=== PATIENT | male | born 1935 | race Caucasian/White ===

== ENCOUNTER 2024-02-08 19:32 | Emergency (ER) | payer MEDICARE, BC, SELFPAY ==
[2024-02-08] VITALS (10 sets, daily range): BP systolic 104–135; BP diastolic 57–74; PULSE 88–117; BMI 29.9
--- NOTE | 2024-02-08 20:06 | ED.GENMED ---
History of Present Illness
General
Chief Complaint: Fainting/Passed Out
Source: patient
Exam Limitations: none
Time Seen by Provider: 02/08/24 19:55
History of Present Illness
History of Present Illness:
This is a 88 year old male that comes in by ambulance with c/o syncope. States that he was sitting at the bar. states that he was going to get up and his eyes rolled back into his head and he got pale. State that they caught him before he fell.
State that he was not feeling good today. State that he has 2 sips of a beer and 2 sips of a [place] ice tea. States that his back was sore today so he took Ibuprofen 800mg as he is in pain 12/12. States that he had some nausea and a headache
earlier but this is gone. Denies any fever, chills, chest pain, SOB, abd pain, vomiting, diarrhea, dizziness, urinary burning.
Past History
Past History
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
Social History
Tobacco: Former smoker
Alcohol: Occasional
Drug: None
Personal:
Living: with family
Review of Systems
Review of Systems
All Other Systems: ROS reviewed and negative except as documented in HPI and ROS
Constitutional: Reports no symptoms; Denies fever or chills
EENT: Reports no symptoms
Respiratory: Reports no symptoms; Denies cough or trouble breathing
Cardiac: Reports no symptoms; Denies chest pain
ABD/GI: Reports nausea; Denies abdominal pain, vomiting or diarrhea
: Reports no symptoms; Denies dysuria, frequency or urgency
Musculoskeletal: Reports no symptoms
Skin: Reports no symptoms
Neurological: Reports headache (Slight); Denies dizzy
Psychiatric: Reports no symptoms
Phy Exam
General Physical Exam
General Presentation: well appearing and no apparent distress
General age: appears stated age
General Skin: warm and dry
General Habitus: elderly
General Mental: alert
General Hydration: appears well hydrated
ENT Exam
ENT Exam: TM's normal, pharynx normal and neck supple
Eye Exam
Eye Exam: EOMI
Cardiovascular Exam
Cardiovascular Exam: regular rate/rhythm, no edema, normal peripheral pulses and other (Murmur)
Pulmonary Exam
Pulmonary Exam: lungs clear, no respiratory distress, no rales, chest non tender, no crackles, no rhonchi, no wheezing and no cough
Gastrointestinal Exam
Gastrointestinal Exam: normal bowel sounds, non tender, soft, no organomegaly, no pulsatile mass and non distended
Musculoskeletal Exam
Musculoskeletal Exam: full ROM and no edema
Skin Exam
Skin Exam: normal color, warm/dry, no rash and no petechia
Psychiatric Exam
Psychiatric Exam: normal mood/affect
Course
Orders/Labs/Results
Orders:
Orders
02/08/24 19:34
EKG [Electrocardiogram (*1)] Urgent
Reason for Study: Syncope
02/08/24 19:35
EKG- Treatment ONCE
02/08/24 19:58
Complete Blood Count/With Diff Urgent
Comprehensive Metabolic Panel Urgent
Troponin I Urgent
02/08/24 20:04
Orthostatic VS- Treatment ONCE
0.9% Sodium Chloride 500 ml [Nss] 500 ml IV BOLUS
02/08/24 20:05
CR Chest - 2 Views Urgent
Comment:
Reason For Exam: Syncope
Abnormal Lab Results
02/08/24
19:58
WBC 11.6 H 10^3/uL
(4.8-10.8)
RBC 3.35 L 10^6/uL
(4.70-6.10)
Hgb 11.0 L g/dL
(13.0-18.0)
Hct 31.9 L %
(39.0-52.0)
MCV 95.2 H fL
(80.0-94.0)
MCH 32.8 H pg
(27.0-31.0)
Absolute Neuts (auto) 9.9 H 10^3/uL
(1.4-6.5)
Absolute Lymphs (auto) 1.0 L 10^3/uL
(1.2-3.4)
Neutrophils % 85.7 H %
(42.2-75.2)
Lymphocytes % 8.9 L %
(20.5-51.1)
Carbon Dioxide 16 L mmol/L
(22-30)
Glucose 181 H mg/dl
(70-99)
Calcium 8.3 L mg/dl
(8.4-10.2)
Total Protein 5.8 L g/dl
(6.3-8.2)
02/08/24 19:58
02/08/24 19:58
WBC very slightly elevated. H/H slightly low. Anemic, carbon dioxide low. Hyperglycemia, Total protein low. Troponin <0.012, Anion Gap 17
Vital Signs
Initial and Last Documented VS:
Initial Vital Signs
Temp Pulse Resp BP Pulse Ox
97.9 F 68 20 104/58 98
02/08/24 19:36 02/08/24 19:36 02/08/24 19:36 02/08/24 19:36 02/08/24 19:36
Last Documented Vital Signs
Temp Pulse Resp BP Pulse Ox
97.9 F 76 15 115/57 99
02/08/24 19:36 02/08/24 20:15 02/08/24 20:15 02/08/24 20:00 02/08/24 20:15
Microsoft Office Instructor consulted with Physician
Microsoft Office Instructor consulted with physician?: Yes
Name of Physician Consulted: Kilo Mulligan
MDM/Problems Addressed
Differential Diagnosis Includes:
Syncope, Dehydration.
Chronic conditions affecting care:
This is a 88 year old male that comes in by ambulance with c/o syncope. States that he did not feel great all day. State that he was sitting at the bar and he went to stand up and his states that his eyes went back into his head and they caught
him before he fell. States that he was unresponsive.
Will check labs, give IV fluids, Orthostatics.
Back into see patient. Patient states that he is ready to go home. Reviewed patient labs and Troponin. Explained to patient that he needs to get better control of his blood sugar. Patient to increase his water intake to 8-8oz glasses daily. Patient
to follow up with the family doctor and will suggest a bridal sales consultant for further evaluation. Patient to return with any concerns.
Chronic conditions affecting care: DM
Acute Exacerbation and/or Progression of Chronic Illness:
NA
*Radiology
Radiology exam reviewed: radiology read reviewed (Chest- No active cardiopulmonary disease. )
*Pulse Oximetry
Patient hypoxic: no
*EKG
Interpreted by ED Provider?: Yes
Heart Rate: 70
Rate: normal
Rhythm: sinus
Powell: left axis deviation
Interval: first degree heart block
QRS Pattern: left bundle branch block (Incomplete)
Ischemia: no ischemia
*Wood Shop Teacher Interpretation
Rate: normal
Heart Rate: 77
Rhythm: sinus
*Critical Care Note
Total Time (30-74mins, 75-104mins- exclusive of procedures): Not Applicable
ED Attending Note
-
Portions of this chart may have been created with voice recognition software.� Occasional wrong word or��sound alike� substitutions may have occurred due to the inherent limitations of voice recognition software.
Discharge Plan
Departure
Patient Disposition: Home (Routine Discharge)
Date of Disposition: 02/08/24
Time of Disposition: 22:14
Patient with high blood pressure during this ER visit?: No
Condition: Good
Covid-19: Not Applicable
Discharge Problem:
Syncope
Instructions: Syncope (Fainting) (DC)
Prescriptions:
No Action
metformin 500 mg tablet
750 mg PO BID
doxycycline hyclate 100 mg capsule
100 mg PO BID
Theragen Tablet
1 tab PO DAILY
diclofenac sodium 75 mg tablet,delayed release (DR/EC)
75 mg PO BID
zolpidem 10 mg tablet
10 mg PO HSPRN PRN (Reason: sleep)
Patient Comments:
02/08/2024: last filled 08/21/23, 30 tabs for 30 days from [facility]
dutasteride 0.5 mg capsule
0.5 mg PO NOON
alfuzosin 10 mg tablet extended release 24 hr
10 mg PO NOON
amlodipine-valsartan 5-160 mg tablet
1 tab PO NOON
Referrals:
Beka Maier MD [Active] - Follow up in 2-3 days
Eamon Lan MD [Family Provider] - Follow up in 2-3 days
Activity Restrictions/Additional Instructions:
As discussed, your blood work shows you have a little anemia. Your blood sugar is also elevated. Please watch your diet to help decrease your sugar intake. Your Chest x-ray was normal. Please follow up with the family doctor and the [facility] for
further evaluation. Please increase your water intake to 8-8oz glasses daily. IF YOU HAVE ANY CHEST PAIN, DIZZINESS, OR YOU HAVE ANY OTHER CONCERNS PLEASE RETURN TO THE EMERGENCY ROOM.
Interventions
Interventions:
*Risk Screen - Suicide Last Done: 02/08/24 19:36
*General Assessment Last Done: 02/08/24 19:36
*Neglect/Abuse Screening Last Done: 02/08/24 19:36
ED- Fall Risk Assessment Last Done: 02/08/24 19:48
*ED COVID-19 Vaccine History Last Done: 02/08/24 19:36
ED- Cardiac Assessment Last Done: 02/08/24 19:48
ED- Neurological Assessment Last Done: 02/08/24 19:48
Discharge Date and Time
Print Language: FRISIAN
[2024-02-08 20:07] LABS: % Basophils 0.3 % (0-2); % Eosinophils 0.1 % (0-6); % Immature Granulocytes 0.3 % (0-0.5); % Lymphocytes 8.9 % (20.5-51.1); % Monocytes 4.7 % (1.7-9.3); % Neutrophils 85.7 % (42.2-75.2); Absolute Monocytes 0.5 10^3/uL (0.1-0.6); Absolute Neutrophils 9.9 10^3/uL (1.4-6.5); Hematocrit 31.9 % (39.0-52.0); Mean Corp Hgb Conc. 34.5 g/dL (33.0-37.0); Mean Corpuscular Hgb 32.8 pg (27.0-31.0); Mean Corpuscular Volume 95.2 fL (80.0-94.0); Mean Platelet Volume 8.8 fL (7.4-10.4); Nucleated Red Blood Cells % 0 % (-); Platelet Count 248 10^3/uL (130-400); Red Blood Cell Count 3.35 10^6/uL (4.70-6.10); Red Cell Dist. Width 13.9 % (11.5-14.5); White Blood Cell Count 11.6 10^3/uL (4.8-10.8)
[2024-02-08] MEDS: NSS 500 IV (20:11)
[2024-02-08 20:34] LABS: ALT (SGPT) 15 U/L (0-50); AST (SGOT) 25 U/L (17-59); Albumin 3.6 g/dl (3.5-5.0); Alkaline Phosphatase 60 U/L (38-126); Blood Urea Nitrogen 19 mg/dl (9-20); Calcium 8.3 mg/dl (8.4-10.2); Carbon Dioxide 16 mmol/L (22-30); Chloride 102 mmol/L (98-107); Estimated Creatinine Clearance 73 ml/min; Glucose 181 mg/dl (70-99); Potassium 4.4 mmol/L (3.5-5.1); Sodium 135 mmol/L (135-145); Total Bilirubin 0.5 mg/dl (0.2-1.3); Total Protein 5.8 g/dl (6.3-8.2); eGFR > 60.00
[2024-02-08 20:38] LABS: Troponin I < 0.012 ng/ml
== END 2024-02-08 23:00 | disposition home or self-care (01) ==
LOC: EMR 19:32
PROVIDERS: EMERGENCY PHYSICIAN Emergency Medicine; FAMILY PHYSICIAN Internal Medicine
DX: R55 Syncope and collapse (principal); I10 Essential (primary) hypertension; E11.65 Type 2 diabetes mellitus with hyperglycemia; Z87.891 Personal history of nicotine dependence; D64.9 Anemia, unspecified
CPT/HCPCS: 96360; 99284; 71046; 80053; 84484; 85025; 93005

== ENCOUNTER → 2024-02-26 08:03 | Outpatient (REF) | payer MEDICARE, BC, SELFPAY | LOC: HWRCS 08:03 | PROVIDERS: ATTENDING PHYSICIAN Internal Medicine | DX: R55 Syncope and collapse (principal); R68.89 Other general symptoms and signs | CPT/HCPCS: 93306 ==

== ENCOUNTER → 2024-03-06 09:11 | Outpatient (REF) | payer MEDICARE, BC, SELFPAY | LOC: RCS 09:11 | PROVIDERS: ATTENDING PHYSICIAN Internal Medicine | DX: R55 Syncope and collapse (principal) | CPT/HCPCS: 93225; 93226 ==

== ENCOUNTER 2024-05-22 05:30 | Inpatient (IN) | payer MEDICARE, BC, SELFPAY ==
[2024-05-21 21:12] VITALS: BP 123/57
[2024-05-21 21:17] VITALS: BMI 29.9
--- NOTE | 2024-05-21 21:18 | EDRN ---
Pt says he cannot stand on his L leg which occurred after having a laminectomy and angioplasty on May 09. Pt says he went to get up to urinate and he passed out and slid off the bed which prompted this visit. Pt has pain in his back and L
leg now. No numbness/tingling. Pt walked up and down his driveway three times today. Pt took oxycodone at 1400. Pt denies fever/chills/cough, n/v/d/c, cp, sob, abd pain.
[2024-05-21 21:30] VITALS: BP 124/59
[2024-05-21 21:35] LABS: ALT (SGPT) 16 U/L (0-50); AST (SGOT) 18 U/L (17-59); Albumin 3.7 g/dl (3.5-5.0); Alkaline Phosphatase 70 U/L (38-126); Blood Urea Nitrogen 21 mg/dl (9-20); Calcium 8.6 mg/dl (8.4-10.2); Carbon Dioxide 22 mmol/L (22-30); Chloride 92 mmol/L (98-107); Estimated Creatinine Clearance 73 ml/min; Glucose 207 mg/dl (70-99); Sodium 122 mmol/L (135-145); Total Bilirubin 0.7 mg/dl (0.2-1.3); Total Protein 5.9 g/dl (6.3-8.2); eGFR > 60.00
[2024-05-21 21:41] LABS: Hematocrit 32.5 % (39.0-52.0); Hemoglobin 11.5 g/dL (13.0-18.0); Mean Corp Hgb Conc. 35.4 g/dL (33.0-37.0); Mean Corpuscular Volume 93.4 fL (80.0-94.0); Mean Platelet Volume 9.1 fL (7.4-10.4); Platelet Count 293 10^3/uL (130-400); Red Blood Cell Count 3.48 10^6/uL (4.70-6.10); Red Cell Dist. Width 14.2 % (11.5-14.5); White Blood Cell Count 35.9 10^3/uL (4.8-10.8)
[2024-05-21 21:55] LABS: % Basophils 0.2 % (0-2); % Eosinophils 0.1 % (0-6); % Immature Granulocytes 1.1 % (0-0.5); % Lymphocytes 15.7 % (20.5-51.1); % Neutrophils 78.9 % (42.2-75.2); Absolute Basophils 0.1 10^3/uL (0-0.2); Absolute Immature Granulocytes 0.4 10^3/uL (0-0.05); Absolute Lymphocytes 5.6 10^3/uL (1.2-3.4); Absolute Monocytes 1.4 10^3/uL (0.1-0.6); Absolute Neutrophils 28.4 10^3/uL (1.4-6.5); Nucleated Red Blood Cells % 0.1 % (-)
[2024-05-21] MEDS: TYLENOL 1000 MG PO (22:02)
[2024-05-21] MEDS: NSS 1000 IV (22:02)
[2024-05-21 22:04] VITALS: BP 100/53
[2024-05-21 22:09] LABS: Lactic Acid 1.8 mmol/L (0.7-2.0)
--- NOTE | 2024-05-21 22:10 | ED.GENMED ---
History of Present Illness
General
Chief Complaint: Fainting/Passed Out
Time Seen by Provider: 05/21/24 21:12
History of Present Illness
History of Present Illness:
88-year-old male with history of hypertension and chronic back issues presenting to the emergency department for syncope. Patient is status post a laminectomy of his lower back by a Dr. Mario Mcneill out of [facility] on May 09.
Denies any postop complications. However today, started to have increased pain in his back and his left lower extremity. He has been able to walk, however prior to arrival slid out of his bed and had a syncopal episode. On arrival to the
hospital, patient was being triaged and had a syncopal episode. He denies any known fever. Denies chest pain or difficulty breathing. Denies weakness in his legs or numbness or tingling, however notes increased pain to his back. Patient has been
taking oxycodone for his pain. Last dose was around 2 PM. Denies additional acute medical complaints
Past History
Past History
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
Social History
Tobacco: Former smoker
Alcohol: Occasional
Drug: None
Personal:
Living: with family
Phy Exam
Physical Exam
Physical Exam:
General: Pale, dry mucous membranes
HEENT: protecting airway
Neck: appears supple
CV: Normal heart rate, regular rhythm
Resp: No accessory muscle use, no increased work of breathing, lungs clear to auscultation bilaterally
Abd: Soft and non-distended, no tenderness to palpation
Extremities: No deformities, no swelling, no erythema. 4/5 strength in bilateral lower extremities which patient reports is chronic. Intact strength and sensation to lower extremities. On examination of the back, incision from the lower thoracic
to upper lumbar region without significant erythema or fluctuance on palpation, however generalized tenderness to palpation
Neuro: alert, no focal neurologic deficit
: deferred
Rectal: deferred
Psych: Normal affect
Skin: Intact
Course
Orders/Labs/Results
Orders:
Orders
05/21/24 21:11
EKG [Electrocardiogram (*1)] Urgent
Reason for Study: Syncope
EKG- Treatment ONCE
05/21/24 21:15
C-Reactive Protein Urgent
Comment: ADD ON
Complete Blood Count/With Diff Urgent
Comprehensive Metabolic Panel Urgent
TSH Reflex To Free T4 Routine
Comment: ADDED
05/21/24 21:43
COVID-19 Antigen Urgent
Source: Nasal Swab
Lactic Acid Urgent
Troponin I Urgent
Influenza A+B Rapid Molecular Urgent
NATALY Source: Nasal Swab
Specimen Description:
05/21/24 21:48
MR Lumbar W/o & With Contrast Urgent
Comment:
Reason For Exam: s/p laminectomy, fever, pain, syncope
OK for patient to be off Cardiac Monitoring for MRI: Yes
Recent pill cam endoscopy?: No
Pacemaker/Defibrillator?: No
Brain Aneurysm Clips?: No
Have you ever worked with metal? grinding metal? welding?: No
Cochlear(ear) implants?: No
Does Pt have a Temp Sensing Cath?: No
Does the patient have IV access?: No
Does the patient have any stents?: No
MR Thoracic Spine W/o & With Urgent
Comment:
Reason For Exam: s/p laminectomy, fever, syncope, pain
Recent pill cam endoscopy?: No
05/21/24 21:52
Blood Culture Q30M
NATALY Source: Blood/Venous
Specimen Description:
0.9% Sodium Chloride 1000 ml [Nss] 1,000 ml IV BOLUS
Acetaminophen [Tylenol] 1,000 mg PO NOW STA
05/21/24 22:11
Cefepime HCl [Maxipime] 2,000 mg IV NOW STA
HYDROmorphone [Dilaudid] 1 mg IV NOW STA
05/21/24 22:12
Vancomycin [Vancocin] 1,500 mg 0.9% Sodium Chloride 500 ml [Nss] 500 ml IV NOW
05/21/24 22:18
Sterile Water [Sterile Water For Injection] 10 ml .ROUTE .STK-MED ONE
05/21/24 22:19
Blood Culture Q30M
NATALY Source: Blood/Venous
Specimen Description:
05/21/24 22:48
Vancomycin [Vancocin] 2,000 mg 0.9% Sodium Chloride 500 ml [Nss] 500 ml IV NOW
05/21/24 23:11
HYDROmorphone [Dilaudid] 1 mg IV NOW STA
05/22/24 02:08
0.9% Sodium Chloride 1000 ml [Nss] 1,000 ml IV BOLUS
05/22/24 05:14
Admit/Transfer Patient As Directed
Co-Sign Provider:
Level of Care: Inpatient admission
Assign to:: IMU- Intermediate Care
Physician / Group: Sandeep
Diagnosis: Epidural Abscess
Reason for Hospitalization: Epidural Abscess
Expected length of stay greater than two midnights?: Yes
ELOS- Estimated Length of Stay in days: 4
I certify the patient meets the requirements for IP care: Yes
PRN Pain Medication Management As Directed
May give lesser potent ordered pain med per pt: Yes
preference::
Protocol:: Medication orders for pain may be administered in a
manner that supports deferring to patient preference
when the pt is:
- Requesting an ordered lesser potent pain medication.
Least to most potent pain medications are defined
as: acetaminophen < NSAID < tramadol < opioids
(morphine, oxycodone, hydromorphone).
- Requesting a lesser dose of the same medication IF
ORDERED.
- Requesting a less intrusive route of administration
if both routes are prescribed by the provider (PO <
IV).
05/22/24 05:15
Code Status As Directed
Resuscitation Status: Full Code
05/22/24 Breakfast
NPO
Allow oral meds: Yes
Allow clear liquids: Sips of Clears
05/22/24 06:03
0.9% Sodium Chloride 1000 ml [Nss] 1,000 ml IV 125 mls/hr
0.9% Sodium Chloride [Nss (Preservative Free)] See Protocol IV PRN PRN
Acetaminophen [Tylenol] 650 mg PO Q4HPRN PRN
FOLic ACID [Folvite] 1 mg 0.9% Sodium Chloride 50 ml [Nss] 50 ml IV DAILYPRN
HYDROmorphone [Dilaudid] 0.5 mg IV Q4HPRN PRN
Lorazepam [Ativan] 1 mg IV Q1HPRN PRN
Lorazepam [Ativan] 1 mg PO Q2HPRN PRN
Lorazepam [Ativan] 2 mg IV Q1HPRN PRN
NORepinephrine 4 MG/250 ML [Levophed] 4 mg in 250 ml IV PER PROTOCOL
Initial dose in mcg/min, then titrate:: 2
Titrate to keep:: MAP > 65 mmHg
Titrate by mcg/min:: 1-2 mcg/min
Frequency of titrations (minutes):: 5
Maximum dose in ICU in mcg/min:: 30
Maximum dose in IMU in mcg/min:: 8
Maximum dose in IVU in mcg/min:: 4
Begin to taper infusion when:: Remained at goal for 4hrs
Taper by mcg/min:: 1-2 mcg/min
Frequency of taper (minutes) if patient maintains goal:: 30
Taper to off?: Yes
If infusion off & no longer maintaining goal:: Contact Provider
Ondansetron Injectable [Zofran] 4 mg IV Q6HPRN PRN
Oxycodone [Roxicodone] 5 mg PO Q6HPRN PRN
05/22/24 06:03
Case Management Consult Once
Case Management Consult: Other
Comment: Substance abuse counseling
Consult Notification Routine
Specialty to Notify: Infectious Disease
DIETARY CONSULT Routine
Reason for Consult: Nutrition support, possible refeeding guidelines
INFECTIOUS DISEASE CONSULT Routine
Consulting Provider: Sarah Sol
Was physician already notified: No
Reason for consult: Epidural Abscess
Neurosurgery Consult Urgent
Consulting Provider: Chandler Diego
Was physician already notified: Yes
Reason for Consult: Epidural Abscess
Activity As Directed
Activity Level: Ambulate
With Assistance
Bladder Scan As Directed
Follow Bladder Retention/Intermittent Cath Algorithm?: Yes
PRN if no void in __ hours: 6
Frequency: Per Retention Algorithm
If Bladder Scan Result >: 400
then:: Straight cath
EKG with chest pain [ECG as needed] As Directed
ECG as needed for:: Chest Pain
I/O [Intake/ Output] As Directed
Frequency: Per unit guidelines
MSAS SCORE As Directed
MSAS Score 0-4: Repeat MSAS every 2 hours until 0-4 for three consecutive assessments, then every 4 hours x 48
hours.
MSAS Score 5-7: For MILD withdrawl symptoms. Repeat MSAS and RASS every 2 hours
MSAS Score 8-11: For MODERATE withdrawal symptoms. Repeat MSAS and RASS every 1 hour. Consider ICU or IMU
level of care.
MSAS Score > 11: For SEVERE withdrawal symptoms. Repeat MSAS and RASS every 1 hour. Notify provider, consider
ICU level of care.
MSAS Additional Instructions: If no improvement or no decrease in score from severe to moderate within 12
hours, consult psychiatry
MSAS Notify Provider: Notify provider if patient requires more than 10 mg of Lorazepam in eight hour period.
Neurological Checks As Directed
Frequency: q4h
Pneumatic Compression Sleeves As Directed
Type: Knee high
Straight Cath As Directed
Frequency: Per Retention Algorithm
Additional Instructions: straight cath as needed per acute urinary retention algorithm for 24 hrs
Additional Instructions: for bladder scan greater than 400 mL
Vital Signs As Directed
Frequency: Per unit guidelines
Weight As Directed
Frequency: Daily
Oxygen Therapy [O2 Therapy] [RESP] Routine
Titrate/Wean O2 to maintain O2 sat greater than (%): 94
DX Deep Vein Thrombosis Video Routine
05/22/24 08:00
Cefepime HCl [Maxipime] 2,000 mg IV Q8H
FOLic ACID [Folvite] 1 mg PO DAILY
Thiamine Injection 200 mg IV Q12
05/25/24 08:00
Thiamine HCl [Vitamin B1] 100 mg PO BID
Abnormal Lab Results
05/21/24
21:15
WBC 35.9 H 10^3/uL
(4.8-10.8)
RBC 3.48 L 10^6/uL
(4.70-6.10)
Hgb 11.5 L g/dL
(13.0-18.0)
Hct 32.5 L %
(39.0-52.0)
MCH 33.0 H pg
(27.0-31.0)
Abs Immat Gran (auto) 0.4 H 10^3/uL
(0-0.05)
Absolute Neuts (auto) 28.4 H 10^3/uL
(1.4-6.5)
Absolute Lymphs (auto) 5.6 H 10^3/uL
(1.2-3.4)
Absolute Monos (auto) 1.4 H 10^3/uL
(0.1-0.6)
Immature Gran % 1.1 H %
(0-0.5)
Neutrophils % 78.9 H %
(42.2-75.2)
Lymphocytes % 15.7 L %
(20.5-51.1)
Sodium 122 L mmol/L
(135-145)
Chloride 92 L mmol/L
(98-107)
BUN 21 H mg/dl
(9-20)
Glucose 207 H mg/dl
(70-99)
C-Reactive Protein 48.60 H mg/L
(0.0-10.00)
Total Protein 5.9 L g/dl
(6.3-8.2)
05/21/24 21:15
05/21/24 21:15
Vital Signs
Initial and Last Documented VS:
Initial Vital Signs
Temp Pulse Resp Pulse Ox
98.8 F 50 18 98
05/21/24 20:59 05/21/24 20:59 05/21/24 20:59 05/21/24 20:59
Last Documented Vital Signs
Temp Pulse Resp BP Pulse Ox
98.5 F 75 18 136/68 96
05/22/24 11:31 05/22/24 14:00 05/22/24 14:00 05/22/24 14:00 05/22/24 14:00
MDM/Problems Addressed
MDM/Problems Addressed:
88-year-old male with history of chronic back pain status post laminectomy on 05/09 presenting for syncope, and increased back pain. Vital signs on arrival significant for fever and mild tachycardia.
On exam, patient is ill-appearing, however awake and alert. Patient is meeting criteria for SIRS. At this time given recent surgery and patient's primary complaint of back pain, concern for postop surgical issue, which may also be causing syncopal
episode. No present concern for spinal cord compromise, sensation intact to lower extremities. Will plan for laboratory analysis, blood cultures, lactic acid. Will discuss with radiology regarding need for MRI imaging to rule out post-op
complication.
22:00 - Patient's white blood cell count is markedly elevated at 35. Continued concern for infection. angiography technologist to be called in. Broad-spectrum antibiotics ordered.
22:50 - patient to MRI
03:00 -patient returned from MRI. Blood pressure slightly low, continuing IV fluids. 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
Additionally there is a subdural collection within the thecal sac that extends from the postoperative site superiorly, resulting in mass effect with mild displacement of the cord ventrally. No cord signal abnormality. Call placed to [facility]
03:40 -called back to [facility], they have been unable to reach the surgeon. Did reach out to our neurosurgery, Dr. Diego who notes findings without significant concern, suspected postsurgical changes. He notes that he can
be admitted to our facility and will review. Remains neurologically intact on reassessment. Patient also noted to be hyponatremic. Admitting for hyponatremia and postop pain with abnormal post-op fluid collections
*Critical Care Note
Total Time (30-74mins, 75-104mins- exclusive of procedures): 90
comment:
The high probability of a clinically significant, sudden or life threatening deterioration of the neurologic and infectious system(s) required my full and direct attention, intervention and personal management. The aggregate critical care time was
90 minutes. This time is in addition to time spent performing reported procedures but includes the following:
[x] Data Review and interpretation
[x] Patient assessment and monitoring of vital signs
[x] Documentation
[x] Medication orders and management
ED Attending Note
-
Portions of this chart may have been created with voice recognition software.� Occasional wrong word or��sound alike� substitutions may have occurred due to the inherent limitations of voice recognition software.
Discharge Plan
Departure
Patient Disposition: Admit
Date of Disposition: 05/22/24
Time of Disposition: 03:43
Presentation/result/management discussed w/ accepting MD/DO: Hospitalist
Patient with high blood pressure during this ER visit?: No
Condition: Fair
Discharge Problem:
Post-operative complication, Acute lumbar back pain, Acute hyponatremia
Interventions
Interventions:
*Risk Screen - Suicide Last Done: 05/21/24 21:12
*General Assessment Last Done: 05/21/24 21:12
*Neglect/Abuse Screening Last Done: 05/21/24 21:12
ED- Fall Risk Assessment Last Done: 05/21/24 21:31
*ED COVID-19 Vaccine History Last Done: 05/21/24 21:12
*Nursing Disposition Last Done: 05/22/24 05:58
ED- Cardiac Assessment Last Done: 05/21/24 21:31
ED- Neurological Assessment Last Done: 05/21/24 21:31
Discharge Date and Time
Discharge Date/Time: 05/22/24 05:58
[2024-05-21 22:16] LABS: COVID-19 Antigen Negative (Negative)
[2024-05-21] MEDS: DILAUDID 1 MG IV ×2 (22:19→23:21)
[2024-05-21 22:20] LABS: Troponin I 0.019 ng/ml
[2024-05-21] MEDS: MAXIPIME 2000 MG IV (22:28)
[2024-05-21 22:30] VITALS: BP 91/51
--- NOTE | 2024-05-21 22:42 | EDRN ---
Called pharmacy for vancomycin
--- NOTE | 2024-05-21 23:11 | EDRN ---
Pt was sleeping when he was taken down to MRI - informed by tech that pt will not lay in the machine until he gets more pain medication. EDT bringing pt back to ED, Dr Oliveira informed.
[2024-05-22] VITALS (18 sets, daily range): BP systolic 81–137; BP diastolic 37–110; BMI 30.3
[2024-05-22] MEDS: VANCOCIN 540 MG IV (01:46)
[2024-05-22] MEDS: NSS 1000 IV ×2 (02:13→07:40)
--- NOTE | 2024-05-22 05:19 | HPS.HSE ---
Family Physician
-
Family Physician: Eamon Lan
Chief Complaint
-
LE Weakness, Back Pain
History of Present Illness
Patient is an 88y M with PMH significant for hypertension, DM-II and DDD who presents to ED complaining of back pain and LE weakness. Patient states that he underwent lumbar spine surgery with Dr. Mario Mcneill at [facility] on
05/09/24. On 05/12 he states that he 'couldn't walk'. He presented to the ED at [facility] for evaluation at that time where he had CT and MRI of the spine. He was ultimately able to walk in the ED and was discharged to home. Yesterday,
patient states that he walked up and down his driveway three times using a walker. He felt very fatigued following this.
This evening he sat up to use a urinal and he 'passed out and slid off the bed'. His called 911 and patient was brought to the ED for further evaluation.
In the ED, patient states that he is feeling improved from initial arrival. He complains of pain at the surgery site in his back. He complains of radicular pain into both legs (was only in the R leg prior to surgery).
Medical History
Past Medical History
Past Medical History: Reports Other
Additional Past Medical History:
Hypertension
DM-II
DDD
GO not on PAP therapy
BPH
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
Past Surgical History: Reports Other
Additional Past Surgical History:
Lumbar Spine Surgery (05/09/24)
L3-5 Fusion (2016)
Lumbar Laminectomy
Appendectomy
T&A
Robotic Pancreatectomy
Right TKA
Right SOREN
Left Hip Hemiarthroplasty
Left Hip Wash-Out
Cataracts
Social History
Tobacco: Former Smoker (Quit smoking 65y ago.)
Alcohol: Daily (3 beers daily.)
Drug: None
Family History
Family History: Not pertinent
Allergies / Home Medications
Allergies reflects when Allergies were last updated in [facility].
Home Medications with original date entered in [facility]
Allergy/Medication List:
Allergies
Allergy/AdvReac Type Severity Reaction Status Date / Time
No Known Allergies Allergy Verified 05/21/24 21:29
Home Medications
alfuzosin 10 mg tablet,extended release 24 hr 10 mg PO NOON 02/08/24
amlodipine 5 mg-valsartan 160 mg tablet 1 tab PO NOON 02/08/24
doxycycline hyclate 100 mg capsule 100 mg PO BID 02/08/24
dutasteride 0.5 mg capsule 0.5 mg PO NOON 02/08/24
metformin 500 mg tablet 750 mg PO BID 02/08/24
therapeutic multivitamin 1 tab PO DAILY 02/08/24
zolpidem 10 mg tablet 5 mg PO HSPRN PRN sleep 02/08/24
Prevagen 1 cap PO DAILY 05/21/24
celecoxib 200 mg capsule 200 mg PO BID 05/21/24
cholecalciferol (vitamin D3) 25 mcg (1,000 unit) tablet (Vitamin D3) 25 mcg PO DAILY 05/21/24
dexamethasone 1 mg tablet 4 mg PO .TAPER 05/21/24
docusate sodium 100 mg capsule (Stool Softener) 100 mg PO DAILY 05/21/24
oxycodone 5 mg tablet 5 mg PO Q6HPRN PRN severe pain 05/21/24
Review of Systems
-
History Source: Patient
A 12 point ROS was completed and negative except as noted: Yes
Constitutional: Reports Fatigue; Denies Fever or Chills
EENT: Denies Sore Throat
Respiratory: Denies Cough or Trouble Breathing
Cardiac: Denies Chest Pain or Palpitations
Abdomen/GI: Denies Abdominal Pain, Nausea, Vomiting or Diarrhea
: Denies Dysuria, Frequency or Incontinence
Musculoskeletal: Reports Other (Back pain); Denies Joint Pain or Edema
Neurological: Reports Weakness; Denies Dizzy, Headache or Numbness
Psych: Denies Depression or Anxiety
Physical Exam
Vital Signs
Vital Signs
Temp Pulse Resp BP Pulse Ox
98.7 F 79 16 94/55 95
05/22/24 01:51 05/22/24 04:00 05/22/24 04:00 05/22/24 04:00 05/22/24 04:00
Physical Exam
General: Other (88y M in no acute distress.)
HEENT: Other (Dry MM. Neck supple.)
Respiratory: Clear; No Wheezes, Rales or Rhonchi
Cardiac: S1/S2 and Tachycardia; No Murmur
GI: Soft, Non Tender, Non Distended and Normal Bowel Sounds
Musculoskeletal: No Clubbing, No Cyanosis and Other (Trace edema at ankles.)
Skin: Other (Incision over the thoracolumbar spine with talha in place. Minimal surrounding erythema. No drainage / discharge / bleeding.)
Neuro: AO x 3 and Other (No significant weakness nor sensory deficits appreciated.)
Laboratory Results
-
05/21/24 21:15
05/21/24 21:15
Laboratory Results
Lactic Acid 1.8 mmol/L (0.7-2.0) 05/21/24 21:43
Total Bilirubin 0.7 mg/dl (0.2-1.3) 05/21/24 21:15
AST 18 U/L (17-59) 05/21/24 21:15
ALT 16 U/L (0-50) 05/21/24 21:15
Alkaline Phosphatase 70 U/L (38-126) 05/21/24 21:15
Troponin I 0.019 ng/ml 05/21/24 21:43
Impression/Plan
-
A/P: Patient is an 88y M with PMH significant for HTN, DM-II and DDD who presents to ED after syncopal episode / LE weakness at home.
Epidural Abscess
Sepsis secondary to the above
Syncope secondary to the above
s/p Lumbar Spine Surgery (05/09/24)
- Admit for further evaluation and treatment.
- Patient presents with leukocytosis, tachycardia and tachypnea with fluid collection on spine imaging and back pain / LE weakness.
- IV abx with cefepime / vanco for now.
- No significant focal weakness is noted at present on exam - patient describes somewhat intermittent symptoms.
- MRI in the ED shows large fluid collection(s) near prior surgical site - including mass effect on the conus / nerve roots as well as the T9-11 cord (from separate subdural collection).
- Significant leukocytosis - though also on tapering dose of steroids since surgery.
- Neurosurgery evaluation.
- Will likely need fluid aspiration and / or I&D. Operative cultures would be beneficial.
- Monitor neurologic exam closely for any changes.
- IVFs / supportive care. +/- pressors if needed to maintain perfusion.
Hypotension
Syncope likely secondary to the above
Benign Hypertension by history
- BP in the ED 80-90s systolic.
- IVF support +/- pressors.
- Hold antihypertensive medications acutely.
- Monitor on telemetry for arrhythmia.
Hyponatremia
- Na = 122, likely hypovolemic +/- ADH release due to pain / surgery / etc.
- IVF support and follow for improvement in labs / lytes / BP / etc.
- Check urine studies.
DM-II
- Hyperglycemia at presents secondary to acute infection, stress, etc.
- Hold metformin acutely.
- Follow glucose and cover with SSI as needed.
- Update A1C.
BPH
- Stable. No new urinary symptoms despite MRI findings.
- Continue dutasteride.
DVT Prophylaxis: SCDs
Code Status: Full
--- NOTE | 2024-05-22 05:39 | EDRN ---
Verbal report called to IMU
--- NOTE | 2024-05-22 06:57 | W.PN.UPDATE ---
Update Note
Progress Note Update
Received call this AM from Dr. Mario Deras - Neurosurgeon at [facility].
Requesting patient be transferred to that facility for ongoing care / OR if needed.
Patient in agreement and completed consent forms.
Accepting physician at [facility] is Dr. Pandey / Hospitalist.
Continue current care for now. Transfer to outside hospital when bed / transport available.
[2024-05-22 07:12] LABS: Glucose - Point of Care 183 mg/dl (70-99)
--- NOTE | 2024-05-22 07:19 | PTCARENOTE ---
pt admitted from the ED, pt is AAOx3, able to make needs known. 97% RA. 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 8/10 pain with movement. pt to be transferred to [facility].
Tiff at [facility] called, awaiting bed. relayed information to oncoming RN. pt aware he is to be NPO at this time. oriented to new room, call lovell within reach, care ongoing.
[2024-05-22] MEDS: MAXIPIME 2000 MG IV (07:35)
[2024-05-22] MEDS: THIAMINE INJECTION 200 MG IV (07:35)
[2024-05-22] MEDS: ROXICODONE 5 MG PO (07:35)
[2024-05-22] MEDS: FOLVITE 1 MG PO (07:35)
--- NOTE | 2024-05-22 08:00 | PHA.VAN.IN ---
Assessment
- Assessment
Renal Function: Appears similar to baseline
Concomitant Antimicrobials: cefepime
AUC Dosing Plan
- Dosing Variables
Dosing Weight (kg): 101
Dosing CrCl (ml/min): 73
Vd coefficient (L/kg): 0.6-0.7
- Empiric Dosing
Initial / Loading Dose: 2000 mg given 05/22 01:46
Maintenance Regimen: 1000 mg q12h to start this AM
Estimated AUC (mcg*h/mL): 449-524
Estimated Peak (mcg*h/mL): 26.1-30.5
Estimated Trough (mcg/ml): 12.8-14.9
Estimated Half Life (H): 10.7
- Monitoring
No levels ordered at this time: consider levels after 4th or 5th dose
Pharmacokinetics Vancomycin I
- -
Patient Age: 88
Patient Sex: Male
Vancomycin Day #: 1
Indication: Skin And Soft Tissue
Requesting Provider: Sandeep
Height / Weight:
Height 6 ft
Actual Weight 101.1 kg
Pertinent Past Medical History: BMI 30; life long doxycycline for chronic L hip infection
- Vital Signs / Lab Results
Temp Pulse Resp BP Pulse Ox
98.9 F 81 15 137/74 98
05/22/24 06:22 05/22/24 06:19 05/22/24 06:19 05/22/24 06:19 05/22/24 05:54
Lab Results - Hematology
05/21/24
21:15
WBC 35.9 H
Lab Results - Chemistry
05/21/24
21:15
BUN 21 H
Creatinine 0.8
Estimated Creat Clear 73
Albumin 3.7
05/21/24
21:43
Lactic Acid 1.8
Microbiology Results
05/21/24 21:43 Influenza Types A & B (RISHABH) - Final
Nasal Swab Negative for Influenza A & B, NAAT
Negative results must be combined with clinical observations
and patient history.
Nucleic Acid Amplification test (NAAT)performed on the
[employer] NOW platform.
[2024-05-22 08:15] LABS: TSH Reflex To Free T4 3.79 uIU/ml (0.47-4.68)
[2024-05-22] MEDS: VANCOCIN 200 IV (08:45)
[2024-05-22] MEDS: NOVOLOG FLEXPEN-LOW RESISTANCE 1 UNITS SC ×2 (08:49→11:40)
--- NOTE | 2024-05-22 11:26 | CON.ID ---
Consultation
-
Date/Time Consultation Requested: May 22, 2024 0603
Date/Time Consultation Performed: May 22, 2024 1130
Requesting Provider: Dr. Nahum Calloway
Performing Provider: Dr. Sarah Sol
Reason for Consultation: Epidural abscess
Chief Complaint / Past History
Chief Complaint
Severe Back pain, passed out
History of Present Illness
88-year-old male with history of diabetes mellitus, recent L1-L2 laminectomy 12/08/2023 who presented to the ED late last night after syncopal episode. Patient has history of left hip hemiarthroplasty infection status post washout in 2020 and has
been on chronic suppressive doxycycline since then. Patient cannot recall the organism isolated from hip. Since that time, patient has left leg pain, and imbalance issues. He also had significant back pain. On May 09, 2024, he underwent
spinal (? L1-L2) laminectomy at [facility]. After surgery patient reports he was doing very well for 2 days then he abruptly unable to walk. He went to [facility] had MRI and his CAT scan done. By that time he was able to
ambulate and therefore was discharged to home. Patient ambulates with a walker. His back pain progressively worse since surgery. He continued to have ambulation problems especially the left leg. Yesterday morning he ambulated 3 times out in the
driveway [id number]. At noon he started to feel unwell with weakness. He decided not to go to dine [employer]. He went to bed. When he sat up to use the urinal he was not able t void. He then slid off the bed and passed out briefly. No
trauma. He was brought to the ER. White count of 35.9. Temperature 100.2 maximum. Blood pressure was in the 80s. Patient also complaining of radicular pain down his right leg which is new. MRI of the thoracic and lumbar spine showed epidural
abscess mid to lower thoracic spine, postop complex fluid collection in the laminectomy bed T12-L1 and L1-L2 with secondary severe spinal canal stenosis and compression of the cauda equina. Patient denies stool incontinence. However he is now in
urinary retention with over 1 L of urine catheterized. No fevers or chills. Back pain is worse with movement. He is able to move his legs.
Past History
Additional Past Medical History:
Diabetes mellitus
Hypertension
BPH
Obstructive sleep apnea
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
Lumbar spinal (?L1-L2) laminectomy (05/09/24)
L3-5 Fusion with hardware (2015)
Appendectomy
T&A
Robotic Pancreatectomy
Right TKA
Right SOREN
Allergy History:
No Known Allergies Allergy (Verified 05/21/24 21:29)
Medications Reviewed: Yes
Current Antibiotics:
Vancomycin d2
Cefepime d2
Social History
Tobacco: Former Smoker
Alcohol: Daily (3 beer)
Drug: None
Personal:
Family History
Family History: Not Pertinent
Review of Systems
Review of Systems
General: Negative Fever, Chills or Change in Appetite
HEENT: Negative Sinus Problems, Headache or Pharyngitis
Cardiovascular: Negative Chest Pain or Dyspnea
Respiratory: Negative Dyspnea or Cough
Gasteroenterology: Negative Nausea, Vomiting or Diarrhea
Genital / Urological: Negative Dysuria or Flank Pain
Endocrine: Weakness
Neurological: Negative Dizziness
All systems: All other systems were reviewed and were negative
Vital Signs
Temp Pulse Resp BP Pulse Ox
98.9 F 70 16 97/59 98
05/22/24 06:22 05/22/24 09:00 05/22/24 09:00 05/22/24 09:00 05/22/24 09:00
Physical Exam
Physical Exam
Constitutional: No Acute Distress
Eyes: No Conjunctival Hemorrhage and Sclera Anicteric
Cardiovascular: Regular Rate and S1/S2
Pulmonary: Clear
Gastrointestinal: Soft, Non Tender, Non Distended and Normal Bowel Sounds
Genito-Urinary: Negative CVA Tenderness
Extremities: Negative Edema
Musculoskeletal: Spinal Tenderness (point tenderness upper to mid back)
Neurological: AO x 3 and Other (Able to flex/extend Bilateral hips/knees/ankles.)
Lab / Diagnostic Study Results
05/21/24 21:15
05/21/24 21:15
Abs Immat Gran (auto) 0.4 10^3/uL (0-0.05) H 05/21/24 21:15
Absolute Neuts (auto) 28.4 10^3/uL (1.4-6.5) H 05/21/24 21:15
Absolute Lymphs (auto) 5.6 10^3/uL (1.2-3.4) H 05/21/24 21:15
Absolute Monos (auto) 1.4 10^3/uL (0.1-0.6) H 05/21/24 21:15
Absolute Basos (auto) 0.1 10^3/uL (0-0.2) 05/21/24 21:15
Immature Gran % 1.1 % (0-0.5) H 05/21/24 21:15
Neutrophils % 78.9 % (42.2-75.2) H 05/21/24 21:15
Lymphocytes % 15.7 % (20.5-51.1) L 05/21/24 21:15
Monocytes % 4.0 % (1.7-9.3) 05/21/24 21:15
Eosinophils % 0.1 % (0-6) 05/21/24 21:15
Basophils % 0.2 % (0-2) 05/21/24 21:15
Lactic Acid 1.8 mmol/L (0.7-2.0) 05/21/24 21:43
Microbiology Results
Micro:
05/21/24 22:19 Blood Culture - Pending
Blood/Venous
05/21/24 21:43 Influenza Types A & B (RISHABH) - Final
Nasal Swab Negative for Influenza A & B, NAAT
Negative results must be combined with clinical observations
and patient history.
Nucleic Acid Amplification test (NAAT)performed on the
[employer] NOW platform.
05/21/24 21:52 Blood Culture - Pending
Blood/Venous
05/21/24 MRI thorax/lumbar spine: Rim-enhancing fluid collection in the dorsal mid to lower thoracic spinal canal. Suspicious for an epidural abscess in the setting of fever and severe back pain. This measures 0.5 cm AP by 11 cm in length and
causes mild to moderate spinal canal stenosis with mild anterior displacement of the spinal cord.
2. Postoperative complex fluid collection in the laminectomy bed at T12-L1 and L1-L2 with secondary severe spinal canal stenosis and compression of the cauda equina.
3. Fluid signal intensity in the L2-L3 intervertebral disc space may be degenerative or secondary to discitis. No adjacent bone marrow signal changes of the L2 inferior endplate or L3 superior endplate to indicate osteomyelitis.
Assessment / Plan
# Thoracic epidural abscess
# Cauda equina cord compression
# Acute urinary retention
# Marked leukocytosis
# Recent L1-L2 laminectomy (05/09/24) at [facility]
- Agree with urgent transfer to [facility] for surgical decompression. Please obtain deep cultures.
- Follow blood cx's - pending.
- Check CRP.
- Continue Vancomycin and cefepime for now.
- Trend temps and WBC.
# Conditions prior to admission
Diabetes mellitus
Hypertension
BPH
Obstructive sleep apnea
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
Lumbar spinal (?L1-L2) laminectomy (05/09/24)
L3-5 Fusion with hardware (2015)
Appendectomy
T&A
Robotic Pancreatectomy
Right TKA
Right SOREN
[2024-05-22] MEDS: PROSCAR 5 MG PO (11:40)
[2024-05-22] MEDS: FLOMAX 0.4 MG PO (11:40)
[2024-05-22 11:49] LABS: Glucose - Point of Care 161 mg/dl (70-99)
--- NOTE | 2024-05-22 14:00 | PTCARENOTE ---
Patient AOx3. MSAS completed per order. Patient on RA. VSS. NSR with first degree on monitor. Straight cath completed and 1700cc out. Patient NPO. Q6 hr accuchecks completed. Patient c/o back pain. Medication provided per JUL. Call lovell within
reach, bed in lowest position, bed of wheels locked.
[2024-05-22] MEDS: DILAUDID 0.5 MG IV (14:12)
--- NOTE | 2024-05-22 14:29 | PTCARENOTE ---
Verbal report given to Jeannie ORO at [facility]. Patient left hospital in stretcher via ambulance. L wrist IV in place. Patient belongings transferred with patient.
--- NOTE | 2024-05-22 15:30 | CM ---
Patient for transfer to [facility] when bed available for transfer. CM will continue to follow for discharge planning needs.
Plan; transfer to [facility]
--- NOTE | 2024-05-22 18:59 | W.DCSUMMARY ---
Discharge Summary
Discharge Data
Date of Admission: 05/22/24
Date of Discharge: 05/22/24
-
Pending Results: Yes
Additional Pending Results:
Blood cultures done 05/21/24 with [facility] in [facility]. Final identification and sensitivities are pending.
Hospital Course
Patient is an 88y M with PMH significant for hypertension and DM-II who presented to ED the evening of 05/21/24 after syncopal episode and fall from bed at home. Patient had recent thoracolumbar spine surgery at [facility]
on 05/09/[address] Mario Dears. Patient reported intermittent LE weakness and difficulty ambulating since that time.
Evaluation in the ED at revealed SIRS criteria including leukocytosis, tachycardia and tachypnea. Tmax = 100.2.
MRI of the thoracic and lumbar spine were obtained revealing two areas of fluid collection adjacent to the spine.
11 x 0.5cm collection with moderate canal stenosis in the lower thoracic canal area.
Complex post-op collection in the laminectomy bed T12 - L1 and L1-L2 also with severe spinal stenosis and compression of the nerve roots / conus.
ED staff at contacted [facility] for possible transfer, but were unable to reach Neurosurgery airline station agent.
Case was reviewed with Neurosurgery airline station agent at who recommended admission and treatment here pending further communication.
Patient was admitted for sepsis and epidural abscess. He was started on broad spectrum abx and IVF support.
At 6:30 AM, I was contacted by Dr. Mario Deras who agreed to have patient transferred to his facility for further evaluation and treatment.
Patient was accepted to [facility] to the Hospitalist service / Dr. Pandey pending bed availability and transport arrangements.
Pending his eventual transfer, patient was noted to have urinary retention and required Zepeda placement for > 1 liter of urine.
Discharge Plan
-
Patient Disposition: Acute Care Hospital
Discharge Orders:
Discharge Patient (As Directed); Ordered 05/22/24
Ordered By: Brodie T. Sandeep
Discharge Date and Time
Discharge Date/Time: 05/22/24 16:25
Print Language: [place]
== END 2024-05-22 16:25 | disposition short-term general hospital (02) | DRG 871 ==
LOC: IMU 05:30
PROVIDERS: ADMITTING PHYSICIAN Hospitalist; ATTENDING PHYSICIAN Family Medicine; CONSULT PHYSICIAN Internal Medicine Infectious Disease; EMERGENCY PHYSICIAN Student in an Organized Health Care Education/Training Program; FAMILY PHYSICIAN Internal Medicine
DX: A41.9 Sepsis, unspecified organism (principal); G06.1 Intraspinal abscess and granuloma; E87.1 Hypo-osmolality and hyponatremia; Z87.891 Personal history of nicotine dependence; E11.36 Type 2 diabetes mellitus with diabetic cataract; E11.65 Type 2 diabetes mellitus with hyperglycemia
CPT/HCPCS: 72157; 72158; 80053; 82962; 83605; 84443; 84484; 85025; 86140; 87040; 87147; 87186; 87205; 87502; 87811; 93005; 96361; 96365; 96366; 96375; 96376; 99285; A9575

== ENCOUNTER 2025-02-14 15:22 | Inpatient (IN) | payer MEDICARE, BC, SELFPAY ==
[2025-02-14] VITALS (10 sets, daily range): BP systolic 125–171; BP diastolic 74–93; PULSE 82–96; BMI 31.5; BMI 29.8
[2025-02-14 10:25] LABS: Hematocrit 29.1 % (39.0-52.0); Hemoglobin 9.7 g/dL (13.0-18.0); Mean Corp Hgb Conc. 33.3 g/dL (33.0-37.0); Mean Corpuscular Volume 95.7 fL (80.0-94.0); Nucleated Red Blood Cells % 0 % (-); Platelet Count 253 10^3/uL (130-400); Red Cell Dist. Width 14.1 % (11.5-14.5)
[2025-02-14 10:35] LABS: INR 1.03; PT 13.8 Sec (11.4-14.6)
[2025-02-14 10:36] LABS: APTT 26.2 Sec (23.4-35.0)
[2025-02-14 10:44] LABS: ALT (SGPT) 12 U/L (0-50); AST (SGOT) 21 U/L (17-59); Albumin 4.1 g/dl (3.5-5.0); Alkaline Phosphatase 59 U/L (38-126); Blood Urea Nitrogen 14 mg/dl (9-20); Calcium 8.7 mg/dl (8.4-10.2); Carbon Dioxide 23 mmol/L (22-30); Chloride 104 mmol/L (98-107); Glucose 165 mg/dl (70-99); Potassium 4.4 mmol/L (3.5-5.1); Sodium 134 mmol/L (135-145); Total Protein 6.3 g/dl (6.3-8.2); eGFR > 60.00
--- NOTE | 2025-02-14 13:10 | ED.GENMED ---
History of Present Illness
General
Chief Complaint: Rectal Bleeding
Source: patient
Time Seen by Provider: 02/14/25 12:38
History of Present Illness
History of Present Illness:
89-year-old male presents to the emergency room after having bloody stool last night today. Last night the patient had a very large maroon stool. He denies any abdominal pain. Patient has had colonoscopies in the past. He has been told that he
has diverticulosis. He does not take any oral anticoagulants. No fever or chills. Last episode of bloody stool was this morning, few hours ago.
Past History
Past History
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
Social History
Tobacco: Former smoker
Alcohol: Occasional
Drug: None
Personal:
Living: with family
Phy Exam
Physical Exam
Physical Exam:
General: Awake, Alert, Oriented X3. No acute distress.
Vitals: unremarkable
Head: Atraumatic
Eyes: Pupils equal, EOMI
Throat: Airway intact, no exudates
Neck: Trachea midline
Lungs: Clear and equal b/l
Heart: Regular rate, no murmurs
Abd: Soft, Nontender, No pulsatile mass
Rectal: No external hemorrhoids, maroon stool
Neuro: Nonfocal
Skin: Warm, dry, no rash
Extremities: pulses equal b/l, no edema
Course
Orders/Labs/Results
Orders:
Orders
02/14/25 10:17
Comprehensive Metabolic Panel Urgent
INR [Prothrombin Time] Urgent
PTT Urgent
02/14/25 10:18
Type And Crossmatch [Type+Screen] Urgent
Complete Blood Count/With Diff Urgent
02/14/25 14:21
Admit/Transfer Patient As Directed
Co-Sign Provider:
Level of Care: Inpatient admission
Assign to:: Medical/Surgical
Physician / Group: gal bautista
Diagnosis: GI bleed
Reason for Hospitalization: GI bleed
Expected length of stay greater than two midnights?: Yes
ELOS- Estimated Length of Stay in days: 3
I certify the patient meets the requirements for IP care: Yes
PRN Pain Medication Management As Directed
May give lesser potent ordered pain med per pt: Yes
preference::
Protocol:: Medication orders for pain may be administered in a
manner that supports deferring to patient preference
when the pt is:
- Requesting an ordered lesser potent pain medication.
Least to most potent pain medications are defined
as: acetaminophen < NSAID < tramadol < opioids
(morphine, oxycodone, hydromorphone).
- Requesting a lesser dose of the same medication IF
ORDERED.
- Requesting a less intrusive route of administration
if both routes are prescribed by the provider (PO <
IV).
02/14/25 14:22
Code Status As Directed
Resuscitation Status: Full Code
Abnormal Lab Results
02/14/25 02/14/25
10:17 10:18
RBC 3.04 L 10^6/uL
(4.70-6.10)
Hgb 9.7 L g/dL
(13.0-18.0)
Hct 29.1 L %
(39.0-52.0)
MCV 95.7 H fL
(80.0-94.0)
MCH 31.9 H pg
(27.0-31.0)
Absolute Lymphs (auto) 3.5 H 10^3/uL
(1.2-3.4)
Absolute Monos (auto) 0.7 H 10^3/uL
(0.1-0.6)
Neutrophils % 42.0 L %
(42.2-75.2)
Monocytes % 9.5 H %
(1.7-9.3)
Sodium 134 L mmol/L
(135-145)
Creatinine 0.6 L mg/dL
(0.7-1.3)
Glucose 165 H mg/dl
(70-99)
02/14/25 10:18
02/14/25 10:17
Vital Signs
Initial and Last Documented VS:
Initial Vital Signs
Temp Pulse Resp BP Pulse Ox
98.5 F 92 16 137/74 98
02/14/25 10:11 02/14/25 10:11 02/14/25 10:11 02/14/25 10:11 02/14/25 10:11
Last Documented Vital Signs
Temp Pulse Resp BP Pulse Ox
98.5 F 77 15 167/79 98
02/14/25 10:11 02/14/25 14:15 02/14/25 14:15 02/14/25 14:09 02/14/25 14:15
MDM/Problems Addressed
Differential Diagnosis Includes:
diverticular bleed, avm, internal hemorrhoid
MDM/Problems Addressed:
Patient presents with couple sowed's of significant maroon stool. He has maroon stool and rectal exam. Hemodynamically stable. Hemoglobin is 9.7 which is a bit of a drop from previous measurements here. Presentation seems to be more than what I
would expect for an internal hemorrhoid. Patient will require hospitalization for serial hemoglobin, observation
*Pulse Oximetry
SaO2: 98
Oxygen Mode of Delivery: Room air
Patient hypoxic: no
*Critical Care Note
Total Time (30-74mins, 75-104mins- exclusive of procedures): Not Applicable
ED Attending Note
-
Portions of this chart may have been created with voice recognition software.� Occasional wrong word or��sound alike� substitutions may have occurred due to the inherent limitations of voice recognition software.
Discharge Plan
Departure
Patient Disposition: Admit
Date of Disposition: 02/14/25
Time of Disposition: 13:56
Admit to: Med/Surg
Presentation/result/management discussed w/ accepting MD/DO: Hospitalist
Condition: Fair
Discharge Problem:
Acute lower GI bleeding
Prescriptions:
No Action
metformin 500 mg tablet
750 mg PO BID
doxycycline hyclate 100 mg capsule
100 mg PO BID
Theragen Tablet
1 tab PO DAILY
dutasteride 0.5 mg capsule
0.5 mg PO DAILY
alfuzosin 10 mg tablet extended release 24 hr
10 mg PO DAILY
amlodipine-valsartan 5-160 mg tablet
1 tab PO DAILY
cholecalciferol (vitamin D3) [Vitamin D3] 25 mcg (1,000 unit) Tablet
25 mcg PO DAILY
Prevagen
1 cap PO DAILY
trazodone 50 mg Tablet
50 mg PO HS
sodium chloride 1 gram Tablet
2,000 mg PO BID
naproxen sodium [Aleve] 220 mg Tablet
220 mg PO DAILYPRN PRN (Reason: mild pain)
Referrals:
Eamon Lan MD [Family Provider, Internal Medicine]
Interventions
Interventions:
*Risk Screen - Suicide Last Done: 02/14/25 13:37
*General Assessment Last Done: 02/14/25 13:37
*Neglect/Abuse Screening Last Done: 02/14/25 13:37
*ED- Fall Risk Assessment Last Done: 02/14/25 12:58
*ED COVID-19 Vaccine History Last Done: 02/14/25 13:37
GX-Pxustp-Bayrzxiiep Assessment Last Done: 02/14/25 12:58
ED- Cardiac Assessment Last Done: 02/14/25 13:37
ED- Pulmonary Assessment Last Done: 02/14/25 13:37
Discharge Date and Time
Print Language: GUATEMALAN
--- NOTE | 2025-02-14 14:00 | HPS.HSE ---
Family Physician
-
Family Physician: Eamon Lan
Chief Complaint
-
GI bleed
History of Present Illness
89-year-old male with past medical history of hypertension, BPH, type 2 diabetes history of epidural abscess on chronic antibiotic presents to the emergency room after having bloody stool last night and today morning. Patient denied any abdominal
pain, nausea, vomiting. Patient denied any headache, dizziness or syncope. Patient denied any use of Motrin, ibuprofen, Advil or naproxen. He took 1 Advil yesterday morning after long time. Denied fever, chills, chest pain, short of breath.
Patient denied any dysuria hematuria. Patient has had colonoscopy 10 years ago noted to have hemorrhoids.
Hemoglobin 9.7. admitting for further managment.
Medical History
Past Medical History
Past Medical History: Reports Other
Additional Past Medical History:
Type 2 diabetes, hypertension, BPH, obstructive sleep apnea, E. coli UTI, lumbar herniated disc,
Past Surgical History: Reports Other
Additional Past Surgical History:
Appendectomy, tonsillectomy, robotic pancreatectomy, laminectomy, retrograde fused, right knee replacement, cataract removal of left eye, cataract removal right eye, right total hip replacement, left partial hip replacement,
Social History
Tobacco: Former Smoker
Alcohol: Occasional
Drug: None
Personal:
Living: With Family
Family History
Family History: Not pertinent
Allergies / Home Medications
Allergies reflects when Allergies were last updated in [facility].
Home Medications with original date entered in [facility]
Allergy/Medication List:
Allergies
Allergy/AdvReac Type Severity Reaction Status Date / Time
No Known Allergies Allergy Verified 02/14/25 10:11
Home Medications
alfuzosin 10 mg tablet,extended release 24 hr 10 mg PO DAILY Urinary Issue 02/08/24
amlodipine 5 mg-valsartan 160 mg tablet 1 tab PO DAILY Blood Pressure 02/08/24
doxycycline hyclate 100 mg capsule 100 mg PO BID shelter 02/08/24
dutasteride 0.5 mg capsule 0.5 mg PO DAILY Urinary Issue 02/08/24
metformin 500 mg tablet 750 mg PO BID Diabetes 02/08/24
therapeutic multivitamin 1 tab PO DAILY Supplement 02/08/24
Prevagen 1 cap PO DAILY Supplement 05/21/24
cholecalciferol (vitamin D3) 25 mcg (1,000 unit) tablet (Vitamin D3) 25 mcg PO DAILY Supplement 05/21/24
naproxen sodium 220 mg tablet (Aleve) 220 mg PO DAILYPRN PRN mild pain 02/14/25
sodium chloride 1 gram tablet 2,000 mg PO BID Kidney Disease 02/14/25
trazodone 50 mg tablet 50 mg PO HS Sleep 02/14/25
Review of Systems
-
Constitutional: Reports No Symptoms
EENT: Reports No Symptoms
Respiratory: Reports No Symptoms
Cardiac: Reports No Symptoms
Abdomen/GI: Reports Bloody Stools
: Reports No Symptoms
Musculoskeletal: Reports No Symptoms
Skin: Reports No Symptoms
Neurological: Reports No Symptoms
Endocrine: Reports No Symptoms
Hematologic/Lymphatic: Reports No Symptoms
Psych: Reports No Symptoms
Physical Exam
Vital Signs
Vital Signs
Temp Pulse Resp BP Pulse Ox
98.5 F 67 22 155/88 100
02/14/25 10:11 02/14/25 13:30 02/14/25 13:30 02/14/25 12:59 02/14/25 13:30
Physical Exam
General: Well Developed, Well Nourished and No Apparent Distress
HEENT: NormoCephalic, Moist mucous membranes and Atraumatic
Respiratory: Clear
Cardiac: S1/S2 and Regular Rhythm; No Murmur or Rub
GI: Soft, Non Tender, Non Distended and Normal Bowel Sounds; No Organomegaly
Rectal: Deferred by Provider
Musculoskeletal: No Clubbing, No Cyanosis and No Edema
Skin: No Rash
Neuro: AO x 3 and Nonfocal/grossly intact
Psych: Calm
Laboratory Results
-
02/14/25 10:18
02/14/25 10:17
Laboratory Results
PT 13.8 Sec (11.4-14.6) 02/14/25 10:17
INR 1.03 02/14/25 10:17
APTT 26.2 Sec (23.4-35.0) 02/14/25 10:17
Total Bilirubin 0.4 mg/dl (0.2-1.3) 02/14/25 10:17
AST 21 U/L (17-59) 02/14/25 10:17
ALT 12 U/L (0-50) 02/14/25 10:17
Alkaline Phosphatase 59 U/L (38-126) 02/14/25 10:17
Data Reviewed
-
Lab Data: Labs Reviewed by me
Impression/Plan
-
# Lower GI bleed
- Hemoglobin 9.7
-Continue to trend hemoglobin, transfuse if hemoglobin less than 7
-IV PPI
-Clear liquid diet
-GI consulted
#type 2 DM-II
- Hold metformin
- Follow glucose and cover with SSI as needed.
- Update A1C.
#BPH
- Alfuzosin, dutasteride continued
# Essential hypertension
- Norvasc/valsartan continue
#History of epidural abscess
- On doxycycline
DVT Prophylaxis: SCDs
Code Status: Full
--- NOTE | 2025-02-14 14:31 | W.PN.UPDATE ---
Update Note
Progress Note Update
This note serves as an addendum to the H&P by finance teacher SANDRA�
Felicita JASON�
HPI
88y M with PMH significant for Hemorrhoids, Diverticulosis, No prior HX GIB, hypertension, DMT2, BPH, GO , not on CPAP and DDD on Lifelong Doxycycline for Chronic Left Hip Infection, HX L3-5 Fusion (2016) Lumbar Laminectomy seen at ER:
emergency room after having bloody stool last night today. Last night the patient had a very large maroon stool. He denies any abdominal pain. Patient has had colonoscopies in the past. He has been told that he has diverticulosis. He does not
take any oral anticoagulants. No fever or chills. Last episode of bloody stool was this morning, few hours ago.
PHX; see above
Relevant VS - stable
Temp Pulse Resp BP Pulse Ox
98.5 F 77 15 167/79 98
02/14/25 10:11 02/14/25 14:15 02/14/25 14:15 02/14/25 14:09 02/14/25 14:15
PE
Gen: No acute distress.
HEENT: anicteric
Neck: supple
Lungs: CTA
Cor: RRR S1 S2
Abdomen:�Soft, Nontender,
TESTING PROJECTS ADMINISTRATOR: AAO3, NFND
MS: no edema
Psych:nl mood and affect
Relevant data�
02/14/25 02/14/25
10:17 10:18
RBC 3.04 L
Hgb 9.7 L
Hct 29.1 L
MCV 95.7 H
MCH 31.9 H
Absolute Lymphs (auto) 3.5 H
Absolute Monos (auto) 0.7 H
Neutrophils % 42.0 L
Monocytes % 9.5 H
Sodium 134 L
Creatinine 0.6 L
Glucose 165 H
Last hospitalist admission: Date of Admission: 05/22/24 - Date of Discharge: 05/22/24
DC DX:Epidural Abscess complicated with sepsis - patient transferred to his facility for further evaluation and treatment.
- Patient was accepted to [facility] to the Hospitalist service / Dr. Pandey pending bed availability and transport arrangements.
- Blood cultures done 05/21/24 with [facility] in [facility].
ASSESSMENT & PLAN
Acute painless large amount rectal Bleed last night - and last rectal bleed was this morning
- No further rectal bleed at ER
- presumed acute LGIB associated ABLA with dropped almost 2 gm of Hgb from baseline
- HX Hemorrhoids
- HX Diverticulosis per prior Colonoscopy
- No prior HX GIB, No prior blood Tx
- Trend H & H
- T & S, blood consented
- Clear and IVF KVO
- GI consulted
HX Epidural Abscess complicated wiht sepsis secondary to the above
s/p Lumbar Spine Surgery (05/09/24)
- patient transferred to his facility for further evaluation and treatment.
- Patient was accepted to [facility] to the Hospitalist service / Dr. Pandey pending bed availability and transport arrangements.
DMT2
- Hold metformin acutely.
- Follow glucose and cover with SSI as needed.
- Update A1C.
BPH
- Stable.
- No new urinary symptoms despite MRI findings.
- Continue dutasteride.
DVT Prophylaxis: SCDs
Code Status: Full
IP MS
--- NOTE | 2025-02-14 15:24 | CON.GI ---
Addendum entered and electronically signed by Madina Wells MD 02/14/25 16:14:
I saw and examined the patient.
The INSPECTOR PROCESS's note was reviewed and I agree with the note.
Comment: This is a very pleasant 89-year-old male with past medical history as listed below who has a history of chronic constipation but uses Colace only as needed who was in his usual state of health up until last night when he had blood in the
stool. He had 2-3 episodes last night and today morning he had another episode and he came to the emergency room. Since he has been here though he has not had any further rectal bleeding and he only noticed a small amount of blood on the toilet
paper. He denies any abdominal pain. No nausea or vomiting or hematemesis, no dizziness or syncope. He uses Aleve PRN. He says his last colonoscopy was over 10 years ago at [facility] he says that he has never had polyps but he was told that he
had diverticulosis and he has never had any prior GI bleed.
Assessment and plan : painless LGIB most likely from diverticulosis less likely neoplasm or ischemic colitis or hemorrhoids or angiectasias. He is currently hemodynamically stable if he does have further episodes of bleeding then would get a CTA.
I also encouraged him to take Colace daily and Metamucil daily and use MiraLAX as needed for constipation. hemoglobin on admission was 9.7, his hemoglobin 05/21/2024 was 11.5. if he drops further especially if he drops less than 8 will need
transfusion. doubt brisk upper GI bleed his BUN is normal and he is hemodynamically stable. Given his age will hold on colonoscopy unless he has further active bleeding
Original Note:
Consultation
-
Date/Time Consultation Requested: 02/14/25 1500
Date/Time Consultation Performed: 02/14/25 1515
Requesting Provider: Dr. Green
Performing Provider: Dr. Wells/DERICK Coronel
Reason for Consultation: lower GI bleed
Medical History
Chief Complaint / HPI
Chief Complaint: rectal bleeding
History of Present Illness:
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
emergency room with acute onset of diarrhea and rectal bleeding. Asked to evaluate for the same. The patient states that he has a history of chronic constipation with the need to use 3 Colace twice a week. This usually produces a initial hard
bowel movement that he requires sitting on the toilet and straining. Followed by this is usually a large loose bowel movement. The patient states that he had 1 of these bowel movements yesterday. 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
was an event being held. Late last evening he felt the urge to have a bowel movement. He went and it was loose stool with blood mixed in it. He then had 2 more episodes with the same amount. The last episode he had this morning while waiting in
the emergency room was more flatus that was just a small amount of smear brown stool with some red blood. He denies any fevers, chills, nausea, vomiting, melena, dysphagia or odynophagia. No sick contacts. Does not recall eating anything that did
not taste well. He did take an Aleve yesterday for joint pain. Otherwise he does not take any aspirin or blood thinners. He states he takes Aleve sparingly. He did not have any abdominal cramping or feel the need to pass out while he was having
a bowel movement. He was able to eat and drink this morning when he had coffee and a cinnamon bun. This did not produce any abdominal pain or cramping. His last colonoscopy was approximately 8 years ago performed at [facility]. He states they
told him '10 years'. But he states that at his age he did not think that he would have another one. He denies any family history of gastrointestinal malignancy or IBD . he has never had episode of GI bleeding prior.
Past Medical History
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
Past Surgical History: Other (Appendectomy, tonsillectomy, distal tail pancreatectomy, laminectomy, right knee replacement, cataracts, right total hip replacement, left hip replacement)
Social History
Tobacco: Former Smoker
Alcohol: Occasional
Drug: None
Personal:
Living: With Family
Employment: Employed
Family History
Family History: Other (No family history of gastrointestinal malignancy or IBD)
Allergies / Home Medications
Allergy/AdvReac Type Severity Reaction Status Date / Time
No Known Allergies Allergy Verified 02/14/25 10:11
�Medication �Instructions �Recorded
alfuzosin 10 mg tablet,extended 10 mg PO DAILY Urinary Issue 02/08/24
release 24 hr
amlodipine 5 mg-valsartan 160 mg 1 tab PO DAILY Blood Pressure 02/08/24
tablet
doxycycline hyclate 100 mg capsule 100 mg PO BID [facility] 02/08/24
dutasteride 0.5 mg capsule 0.5 mg PO DAILY Urinary Issue 02/08/24
metformin 500 mg tablet 750 mg PO BID Diabetes 02/08/24
therapeutic multivitamin 1 tab PO DAILY Supplement 02/08/24
Prevagen 1 cap PO DAILY Supplement 05/21/24
cholecalciferol (vitamin D3) 25 25 mcg PO DAILY Supplement 05/21/24
mcg (1,000 unit) tablet (Vitamin
D3)
naproxen sodium 220 mg tablet 220 mg PO DAILYPRN PRN mild pain 02/14/25
(Aleve)
sodium chloride 1 gram tablet 2,000 mg PO BID Kidney Disease 02/14/25
trazodone 50 mg tablet 50 mg PO HS Sleep 02/14/25
Review of Systems
-
All other systems: A 12 pt ROS was Negative except as stated above in HPI
Vital Signs
Temp Pulse Resp BP Pulse Ox
98.5 F 77 15 167/79 98
02/14/25 10:11 02/14/25 14:15 02/14/25 14:15 02/14/25 14:09 02/14/25 14:15
Physical Exam
Exam
General: No Apparent Distress
HEENT: Anicteric
Respiratory: Clear
Cardiac: Regular Rhythm and Murmur
GI: Soft, Non Tender, Non Distended and Normal Bowel Sounds
Musculoskeletal: No Edema
Skin: Warm
Neuro: AO x 3
Psych: Calm
Results
WBC 7.6 10^3/uL (4.8-10.8) 02/14/25 10:18
Hgb 9.7 g/dL (13.0-18.0) L 02/14/25 10:18
Hct 29.1 % (39.0-52.0) L 02/14/25 10:18
MCV 95.7 fL (80.0-94.0) H 02/14/25 10:18
Plt Count 253 10^3/uL (130-400) 02/14/25 10:18
Absolute Neuts (auto) 3.2 10^3/uL (1.4-6.5) 02/14/25 10:18
PT 13.8 Sec (11.4-14.6) 02/14/25 10:17
INR 1.03 02/14/25 10:17
APTT 26.2 Sec (23.4-35.0) 02/14/25 10:17
Sodium 134 mmol/L (135-145) L 02/14/25 10:17
Potassium 4.4 mmol/L (3.5-5.1) 02/14/25 10:17
Chloride 104 mmol/L (98-107) 02/14/25 10:17
Carbon Dioxide 23 mmol/L (22-30) 02/14/25 10:17
BUN 14 mg/dl (9-20) 02/14/25 10:17
Creatinine 0.6 mg/dL (0.7-1.3) L 02/14/25 10:17
Calcium 8.7 mg/dl (8.4-10.2) 02/14/25 10:17
Total Bilirubin 0.4 mg/dl (0.2-1.3) 02/14/25 10:17
AST 21 U/L (17-59) 02/14/25 10:17
ALT 12 U/L (0-50) 02/14/25 10:17
Alkaline Phosphatase 59 U/L (38-126) 02/14/25 10:17
Diagnostic Image Results:
None
Prior GI Procedures:
EGD: Denies
Colonoscopy: Last colonoscopy approximately 8 years ago '[facility]' denies ever having history of polyps. Was told 'repeat in 10 years'.
Assessment / Plan
-
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
emergency room with acute onset of diarrhea and rectal bleeding. Asked to evaluate for the same. 3 episodes with loose stool with mixed red blood occurring after patient had episode of large solid bowel movement and loose stool with straining.
Took Aleve day prior. Denies any abdominal pain or cramping. Afebrile. No leukocytosis. Was able to eat and drink this morning without any difficulty. No significant bleeding while here. WBC 7.6, hemoglobin 9.7, hematocrit 29.1, platelets 253,
sodium 134, potassium 4.4, BUN 14, creatinine 0.6, glucose 165, total bilirubin 0.4, AST 21, ALT 12, alk phos 59, PT 13.8, and INR 1.03. No imaging.
Impression:
Lower GI bleed
-> Prior to onset of symptoms patient had a large hard bowel movement followed by multiple loose bowel movements.
-> Painless bleeding with prior history of diverticulosis, nontender on exam. Vital signs stable
-> Hemoglobin currently 9.7, however hemoglobin baseline appears to be between 10 and 11.5 with macrocytosis. Normal BUN.
Plan:
-Trend Hgb
-Check B12, Folate, iron studies
-Ok for clear liquids, no red
-If with active bleeding would check CTA
-Ok for PPI, however do not feel patient is upper GI bleed
-
-
Thank you for consultation and allowing me to participate in the patient's care. Please call the automation qa lead GI physician during the after hours with any questions or concerns.
--- NOTE | 2025-02-14 16:26 | CM ---
Met with patient at the bedside in the ED
Pharmacy verified: [facility] @ [address] [place] [address]
Lives w/ ; multilevel home; 4 steps to enter; lives on the 1st floor; bath has walk-in shower w/ grab bar and shower chair
PLOF: reported he was independent with ADLs; ambulates with cane or rolling walker; drives; working (owns a restaurant); goes to the gym 3 times a week
SNF stay 2023 @ [facility]; No Home Health utilization
will transport home
Plan: Anticipate discharge to home when medically stable; Case Management will monitor for needs and support if recommended
[2025-02-14 20:30] LABS: Hematocrit 27.9 % (39.0-52.0); Hemoglobin 9.7 g/dL (13.0-18.0)
[2025-02-14 20:50] LABS: Glucose - Point of Care 177 mg/dl (70-99)
[2025-02-14] MEDS: NOVOLOG FLEXPEN-LOW RESISTANCE 1 UNITS SC (21:06)
[2025-02-14] MEDS: NSS 1000 IV (21:06)
[2025-02-14] MEDS: NSS (PRESERVATIVE FREE) 10 ML IV (21:07)
[2025-02-14] MEDS: PROTONIX IV 40 MG IV (21:07)
[2025-02-14] MEDS: VIBRAMYCIN 100 MG PO (21:07)
[2025-02-14] MEDS: SODIUM CHLORIDE 2 GRAM PO (21:07)
[2025-02-14] MEDS: DESYREL 50 MG PO (22:34)
[2025-02-15] VITALS (10 sets, daily range): BP systolic 122–155; BP diastolic 63–84; PULSE 65–87
[2025-02-15 04:22] LABS: Hematocrit 26.3 % (39.0-52.0); Hemoglobin 9.1 g/dL (13.0-18.0); Mean Corp Hgb Conc. 34.6 g/dL (33.0-37.0); Mean Corpuscular Volume 96.3 fL (80.0-94.0); Platelet Count 229 10^3/uL (130-400); Red Cell Dist. Width 14.0 % (11.5-14.5)
[2025-02-15 04:33] LABS: Blood Urea Nitrogen 12 mg/dl (9-20); Calcium 8.4 mg/dl (8.4-10.2); Carbon Dioxide 27 mmol/L (22-30); Chloride 108 mmol/L (98-107); Estimated Creatinine Clearance 82 ml/min; Glucose 125 mg/dl (70-99); Potassium 4.1 mmol/L (3.5-5.1); Sodium 137 mmol/L (135-145); eGFR > 60.00
[2025-02-15 07:54] LABS: Glucose - Point of Care 153 mg/dl (70-99)
[2025-02-15] MEDS: NOVOLOG FLEXPEN-LOW RESISTANCE 1 UNITS SC ×2 (09:11→13:10)
[2025-02-15] MEDS: PROTONIX IV 40 MG IV (09:12)
[2025-02-15] MEDS: NORVASC 5 MG PO (09:12)
[2025-02-15] MEDS: DIOVAN 160 MG PO (09:12)
[2025-02-15] MEDS: NSS (PRESERVATIVE FREE) 10 ML IV (09:12)
[2025-02-15] MEDS: FLOMAX PO ×2 (09:12→09:30)
[2025-02-15] MEDS: PROSCAR 5 MG PO (09:13)
[2025-02-15] MEDS: SODIUM CHLORIDE 2 GRAM PO ×2 (09:13→22:03)
[2025-02-15] MEDS: VIBRAMYCIN 100 MG PO ×2 (09:13→22:04)
[2025-02-15 09:29] LABS: Glycohemoglobin (HgbA1c) 6.9 % (4.0-5.6)
--- NOTE | 2025-02-15 11:38 | W.PN.GI.CBS2 ---
Today's Communication / Plan
-
trend HB
full liquids
Assessment / Plan
-
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
emergency room with acute onset of diarrhea and rectal bleeding. Asked to evaluate for the same. 3 episodes with loose stool with mixed red blood occurring after patient had episode of large solid bowel movement and loose stool with straining.
Took Aleve day prior. Denies any abdominal pain or cramping. Afebrile. No leukocytosis. Was able to eat and drink this morning without any difficulty. No significant bleeding while here. WBC 7.6, hemoglobin 9.7, hematocrit 29.1, platelets 253,
sodium 134, potassium 4.4, BUN 14, creatinine 0.6, glucose 165, total bilirubin 0.4, AST 21, ALT 12, alk phos 59, PT 13.8, and INR 1.03. No imaging.
Assessment and plan
-painless LGIB most likely from diverticulosis less likely neoplasm or ischemic colitis or hemorrhoids or angiectasias. doubt brisk upper GI bleed his BUN is normal and he is hemodynamically stable.
-He is currently hemodynamically stable if he does have further episodes of bleeding then would get a CTA.
-I also encouraged him to take Colace daily and Metamucil daily and use MiraLAX as needed for constipation.
-Given his age will hold on colonoscopy unless he has further active bleeding
- HB remains stable
-advance to full liquids and if no further bleeding can advance to low residue diet possible DC tomorrow if no further bleeding
Subjective
Subjective
Date of Service: February 15, 2025
He had a darker stool today with a small amount of red blood on the toilet paper. Hemoglobin remained stable. No abdominal pain
Objective
Data Reviewed
Laboratory Data:
Laboratory Results
02/15/25 04:04
02/15/25 04:04
Laboratory Results
PT 13.8 Sec (11.4-14.6) 02/14/25 10:17
INR 1.03 02/14/25 10:17
APTT 26.2 Sec (23.4-35.0) 02/14/25 10:17
Total Bilirubin 0.4 mg/dl (0.2-1.3) 02/14/25 10:17
AST 21 U/L (17-59) 02/14/25 10:17
ALT 12 U/L (0-50) 02/14/25 10:17
Alkaline Phosphatase 59 U/L (38-126) 02/14/25 10:17
Vital Signs and I&O:
Vital Signs
Temp Pulse Resp BP Pulse Ox
98.7 F 60 16 131/67 96
02/15/25 06:58 02/15/25 09:12 02/15/25 06:58 02/15/25 09:12 02/15/25 06:58
I&O
02/14/25 02/15/25 02/16/25
06:59 06:59 06:59
Intake Total 550 / 550
Balance 550 / 550
Physical Exam
Physical Exam
Cardiology: Normal Sinus Rhythm
Pulmonary: Clear
GI: Soft, Non Distended, Non Tender and Normal Bowel Sounds
[2025-02-15 11:43] LABS: Glucose - Point of Care 152 mg/dl (70-99)
--- NOTE | 2025-02-15 13:32 | W.PN.HOSP.TC ---
Today's Communication/Plan
-
Advance diet per GI.
Trend H&H.
If hemoglobin less than 7 transfuse.
Assessment / Plan
Assessment / Plan
Poaefsfmub-69-djo[age]-old male with PMHx significant for Spinal epidural abscess, essential hypertension, yvt-hamtofz-zgrarcuxf type 2 diabetes mellitus, BPH with LUTS, E. coli UTI, herniated lumbar vertebrae with radiculopathy, osteoarthritis is at
hospital for bright red bleeding per rectum.
Plan-
# Lower GI bleed-
Admitted with a hemoglobin of 9.7, hemoglobin today-9.1.
GI consulted, GI inputs appreciated
GI suspected to be diverticular bleed as patient reports to have known history of diverticulosis
Patient stayed up-to-date on colonoscopies with no history of polyps or precancerous lesions.
Less likely to be of malignant etiology. Reports melanotic stool episode around 12:30 PM.
Good appetite, no symptoms.
# type 2 diabetes mellitus, qjt-udihjkk-hdrxiozhq-
Hold metformin
Sliding scale insulin as needed
Hemoglobin A1c
Accu-Cheks, monitor for hypoglycemia episodes.
# History of epidural abscess-
Continue doxycycline.
# Essential hypertension-
Continue valsartan and Norvasc.
# BPH-
Continue alfuzosin and dutasteride
# DVT prophylaxis-
Sequential compression devices
# CODE STATUS-
Full code.
Anticipated Discharge: Within 24 hours
Subjective/Interval History
-
Date of Service: February 15, 2025
Patient reports no fresh blood in the stool, his stools were reported to be dark, around 12:30 PM he had jet black stools. No fresh blood on the toilet paper at 12:30 PM.
For lunch, he tolerated full liquid diet well.
Objective Data
-
Labs:
Laboratory Results
02/15/25 02/15/25
03:49 04:04
WBC 8.6
Hgb Cancelled 9.1 L
Hct Cancelled 26.3 L
Plt Count 229
Sodium 137
Potassium 4.1
Chloride 108 H
Carbon Dioxide 27
BUN 12
Creatinine 0.7
Glucose 125 H
Calcium 8.4
Vital Signs:
Vital Signs
Temp Pulse Resp BP Pulse Ox
98.7 F 60 16 131/67 96
02/15/25 06:58 02/15/25 09:12 02/15/25 06:58 02/15/25 09:12 02/15/25 06:58
I&O
02/14/25 02/15/25 02/16/25
06:59 06:59 06:59
Intake Total 550 / 550
Balance 550 / 550
Review of Systems
-
History Source: Patient
All other systems: Reviewed and negative
Abdomen/GI: Reports Black Stools (2 episodes.)
Physical Exam
-
General: No Apparent Distress and Comfortable
HEENT: Moist Mucous Membranes
Respiratory: Clear to Auscultation; Negative Wheezes, Rales, Rhonchi or Crackles
Cardiac: Regular Rhythm and S1/S2; Negative Murmur, Rub or Gallop
GI: Soft, Nontender, Nondistended and Normal Bowel Sounds
Rectal: Hem Positive
Genito-urinary: No Costovertebral Tender
Musculoskeletal: No Clubbing, No Cyanosis and No Edema
Skin: Warm
Neuro: AO x 3
Psych: Calm
[2025-02-15 17:32] LABS: Glucose - Point of Care 225 mg/dl (70-99)
[2025-02-15] MEDS: NSS 1000 IV (17:32)
[2025-02-15] MEDS: NOVOLOG FLEXPEN-LOW RESISTANCE 2 UNITS SC (17:33)
[2025-02-15 19:19] LABS: Hemoglobin 8.6 g/dL (13.0-18.0)
--- NOTE | 2025-02-15 19:37 | PTCARENOTE ---
Pt with large liquid, bloody BM. VS stable. Denies pain. Dr Bateman and Dr Wells notified. Verbal taken for STAT CTA abd and Hgb. Resident-Fay came to floor to explain CT results to pt. Transfer to IMU order placed. Report given to
[facility]. IR called for pt - transported to IR via RN and tech.
--- NOTE | 2025-02-15 21:01 | W.PN.UPDATE ---
Update Note
Progress Note Update
IR consulted for LGIB with positive CTA with bleeding identified within the descending colon
- Pt taken to IR for emergent mesenteric angio
- Selective GERDA arteriogram performed in several different projections. No findings of active bleeding. No embolization performed
- Pt vitals stable, not actively having bloody stools.
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 R leg flat for 3 hours.
- Will follow. Continue conservative management.
[2025-02-15 21:56] LABS: Glucose - Point of Care 147 mg/dl (70-99)
--- NOTE | 2025-02-15 21:56 | PTCARENOTE ---
Pt received from [facility]. Drowsy but arousable. AAOx3. Right groin with bandaid c/d/i. Site without hematoma or bruising. Vascular checks to RLE WNL and as documented. Admits to 11/28 pain to right groin 'stings.' Declines need for pain med at this
time. VSS. Afebrile. SB/SR/1st degree/PVC/PQT onCM rate 50's-60's. Maintained on 3hr flat position until 0030. IVF's infusing to right ac at 50ml/hr. No BM at this time. Does not feel the need to void currently. Rest of assessment as documented.
Call lovell remains within reach. Will continue to monitor.
[2025-02-15] MEDS: DESYREL 50 MG PO (22:04)
[2025-02-16] VITALS (18 sets, daily range): BP systolic 106–151; BP diastolic 60–95
[2025-02-16 04:03] LABS: Hematocrit 23.7 % (39.0-52.0); Hemoglobin 8.1 g/dL (13.0-18.0); Mean Corp Hgb Conc. 34.2 g/dL (33.0-37.0); Mean Corpuscular Volume 95.2 fL (80.0-94.0); Platelet Count 216 10^3/uL (130-400); Red Cell Dist. Width 13.7 % (11.5-14.5)
[2025-02-16 04:23] LABS: Blood Urea Nitrogen 7 mg/dl (9-20); Calcium 8.4 mg/dl (8.4-10.2); Carbon Dioxide 23 mmol/L (22-30); Chloride 109 mmol/L (98-107); Estimated Creatinine Clearance 95 ml/min; Glucose 133 mg/dl (70-99); Potassium 3.9 mmol/L (3.5-5.1); Sodium 136 mmol/L (135-145); eGFR > 60.00
[2025-02-16] MEDS: PROTONIX IV 40 MG IV (07:45)
[2025-02-16] MEDS: NSS (PRESERVATIVE FREE) 10 ML IV (07:45)
[2025-02-16] MEDS: VIBRAMYCIN 100 MG PO ×2 (07:46→19:56)
[2025-02-16] MEDS: PROSCAR 5 MG PO (07:46)
[2025-02-16] MEDS: SODIUM CHLORIDE 2 GRAM PO ×2 (07:46→19:56)
[2025-02-16] MEDS: DIOVAN 160 MG PO (07:46)
[2025-02-16] MEDS: NORVASC 5 MG PO (07:46)
[2025-02-16] MEDS: FLOMAX 0.4 MG PO (07:46)
[2025-02-16] MEDS: NOVOLOG FLEXPEN-LOW RESISTANCE SC ×2 (07:49→16:58)
[2025-02-16 08:00] LABS: Glucose - Point of Care 145 mg/dl (70-99)
--- NOTE | 2025-02-16 10:20 | W.PN.GI.CBS2 ---
Today's Communication / Plan
-
Continue to monitor for any further signs of bleeding and monitoring hemoglobin
Assessment / Plan
-
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
emergency room with acute onset of diarrhea and rectal bleeding. Asked to evaluate for the same. 3 episodes with loose stool with mixed red blood occurring after patient had episode of large solid bowel movement and loose stool with straining.
Took Aleve day prior. Denies any abdominal pain or cramping. Afebrile. No leukocytosis. Was able to eat and drink this morning without any difficulty. No significant bleeding while here. WBC 7.6, hemoglobin 9.7, hematocrit 29.1, platelets 253,
sodium 134, potassium 4.4, BUN 14, creatinine 0.6, glucose 165, total bilirubin 0.4, AST 21, ALT 12, alk phos 59, PT 13.8, and INR 1.03. No imaging.
Assessment and plan
-painless LGIB most likely from diverticulosis less likely neoplasm or ischemic colitis or hemorrhoids or angiectasias. doubt brisk upper GI bleed his BUN is normal and he is hemodynamically stable.
- Positive CTA 02/15 in descending colon and had emergent arteriogram with IR and no active bleeding was noted so embolization not performed
-No further bleeding overnight
-continue to monitor hemoglobin
-I also encouraged him to take Colace daily and Metamucil daily and use MiraLAX as needed for constipation after DC.
-Given his age will hold on colonoscopy unless he has further active bleeding
-Clear liquid diet today
Subjective
Subjective
Date of Service: February 16, 2025
He had a maroon stool yesterday evening and discussed with medicine team got a stat CT angiogram that showed active bleeding in the descending colon, consulted interventional radiology Dr. Vo and had an emergent mesenteric angiogram with
selective GERDA arteriogram but no active bleeding was noted so embolization not performed. He has not had any further bleeding since then he had small bowel movement today and has not noticed any blood, denies any abdominal pain.
Objective
Data Reviewed
Laboratory Data:
Laboratory Results
02/16/25 03:43
02/16/25 03:43
Laboratory Results
PT 13.8 Sec (11.4-14.6) 02/14/25 10:17
INR 1.03 02/14/25 10:17
APTT 26.2 Sec (23.4-35.0) 02/14/25 10:17
Total Bilirubin 0.4 mg/dl (0.2-1.3) 02/14/25 10:17
AST 21 U/L (17-59) 02/14/25 10:17
ALT 12 U/L (0-50) 02/14/25 10:17
Alkaline Phosphatase 59 U/L (38-126) 02/14/25 10:17
IR Note
consulted for LGIB with positive CTA with bleeding identified within the descending colon
- Pt taken to IR for emergent mesenteric angio
- Selective GERDA arteriogram performed in several different projections. No findings of active bleeding. No embolization performed
- Pt vitals stable, not actively having bloody stools.
- R QUARRY BOSS arteriotomy closed with Mynx closure device. R leg flat for 3 hours.
- Will follow. Continue conservative management.
02/15/2025 CTA
IMPRESSION:
CTA evidence for active gastrointestinal bleeding into the lumen of the mid descending colon, which may be secondary to a diverticular bleed.
Other findings, as detailed above.
Vital Signs and I&O:
Vital Signs
Temp Pulse Resp BP Pulse Ox
98 F 65 17 133/95 100
02/16/25 07:30 02/16/25 10:00 02/16/25 10:00 02/16/25 10:00 02/16/25 09:45
I&O
02/15/25 02/16/25 02/17/25
06:59 06:59 06:59
Intake Total 550 / 550 1310 / 1310 480 / 480
Output Total 1250 / 1250 100 / 100
Balance 550 / 550 60 / 60 380 / 380
Physical Exam
Physical Exam
Cardiology: Normal Sinus Rhythm
Pulmonary: Clear
GI: Soft, Non Distended, Non Tender and Normal Bowel Sounds
[2025-02-16 11:05] LABS: Glucose - Point of Care 157 mg/dl (70-99)
[2025-02-16] MEDS: NOVOLOG FLEXPEN-LOW RESISTANCE 1 UNITS SC (12:12)
--- NOTE | 2025-02-16 12:50 | W.PN.HOSP.TC ---
Today's Communication/Plan
-
Trend H&H.
Clear liquid diet
Assessment / Plan
Assessment / Plan
Vue[age]vbqy-46-egr[age]-old male with PMHx significant for Spinal epidural abscess, essential hypertension, rid-lxxuruo-nlpfpyymz type 2 diabetes mellitus, BPH with LUTS, E. coli UTI, herniated lumbar vertebrae with radiculopathy, osteoarthritis is at
hospital for bright red bleeding per rectum.
Plan-
# Lower GI bleed-
Admitted with a hemoglobin of 9.7, hemoglobin today-8.1
After a huge bowel movement on 02/15/2025, his CTA abdomen/pelvis is ordered that showed acute diverticular bleed from mid descending colon.
IR consulted for possible GERDA embolization. No bleed identified with IR.
GI suspected to be diverticular bleed as patient reports to have known history of diverticulosis
Patient stayed up-to-date on colonoscopies with no history of polyps or precancerous lesions.
Less likely to be of malignant etiology. Reports melanotic stool episode around 12:30 PM.
Good appetite, no symptoms.
# type 2 diabetes mellitus, lvc-tdfatus-gplhzcifb-
Hold metformin
Sliding scale insulin as needed
Hemoglobin A1c
Accu-Cheks, monitor for hypoglycemia episodes.
# History of epidural abscess-
Continue doxycycline.
# Essential hypertension-
Continue valsartan and Norvasc.
# BPH-
Continue alfuzosin and dutasteride
# DVT prophylaxis-
Sequential compression devices
# CODE STATUS-
Full code.
Anticipated Discharge: 24 - 48 hours
Subjective/Interval History
-
Date of Service: February 16, 2025
Patient did not have any bloody bowel movements after 5:30 PM yesterday. At 5:30 PM yesterday, we obtained a CT angiogram for acute GI bleed which showed active bleeding from mid descending colon. Interventional radiology was consulted for
possible inferior mesenteric artery embolization, however no specific bleeder was identified. Currently patient does not experience any symptoms and patient looks stable.
Objective Data
-
Labs:
Laboratory Results
02/16/25
03:43
WBC 8.1
Hgb 8.1 L
Hct 23.7 L
Plt Count 216
Sodium 136
Potassium 3.9
Chloride 109 H
Carbon Dioxide 23
BUN 7 L
Creatinine 0.6 L
Glucose 133 H
Calcium 8.4
Vital Signs:
Vital Signs
Temp Pulse Resp BP Pulse Ox
98.5 F 77 23 117/65 100
02/16/25 11:00 02/16/25 12:30 02/16/25 12:30 02/16/25 12:00 02/16/25 12:30
I&O
02/15/25 02/16/25 02/17/25
06:59 06:59 06:59
Intake Total 550 / 550 1310 / 1310 480 / 480
Output Total 1250 / 1250 100 / 100
Balance 550 / 550 60 / 60 380 / 380
Review of Systems
-
History Source: Patient
All other systems: Reviewed and negative
Physical Exam
-
HEENT: Moist Mucous Membranes
Respiratory: Clear to Auscultation; Negative Wheezes, Rales, Rhonchi or Crackles
Cardiac: Regular Rhythm and S1/S2; Negative Murmur, Rub or Gallop
GI: Soft, Nontender, Nondistended and Normal Bowel Sounds
Musculoskeletal: No Clubbing, No Cyanosis and No Edema
Neuro: AO x 3 and No Motor Deficits
Psych: Calm
Data Reviewed
-
CT Scan: Report Reviewed by me, Discussed with Physician and Discussed with Patient
Medical Tests (Nuc Med, Echo etc): Report Reviewed by me, Discussed with Physician and Discussed with Patient
Labs: Labs Reviewed by me, Discussed with Physician and Discussed with Patient
--- NOTE | 2025-02-16 15:40 | PTCARENOTE ---
Patient AOx3. [place]. On RA with SpO2 greater than 92%. NSR with prolonged QT and first degree when awake. Sinus jim when sleeping. Utilizes urinal. Dark red BM. Dr. Leger made aware. Tolerating full liquid diet. Assist x1 with cane when OOB.
Call lovell within reach, bed in lowest position, and bed of wheels locked.
--- NOTE | 2025-02-16 15:42 | PTCARENOTE ---
Verbal report given to 4E SHORTY Lam. Transferred via wheelchair. Patient belongings transferred with patient.
[2025-02-16 16:58] LABS: Glucose - Point of Care 139 mg/dl (70-99)
--- NOTE | 2025-02-16 18:01 | PTCARENOTE ---
Received report from Hermelinda ORO in IMU. Received pt into room 404-2. Pt ambulatory to bed, VSS. Assessment as documented. Pt oriented to room, educated on use of call lovell, pt states understanding. Pt has call lovell within reach, resting comfortably
in bed, no complaints at this time.
[2025-02-16 22:01] LABS: Glucose - Point of Care 177 mg/dl (70-99)
[2025-02-16] MEDS: DESYREL 50 MG PO (23:14)
[2025-02-17] VITALS (7 sets, daily range): BP systolic 111–153; BP diastolic 59–88; PULSE 65
[2025-02-17 06:58] LABS: Glucose - Point of Care 132 mg/dl (70-99)
[2025-02-17] MEDS: NOVOLOG FLEXPEN-LOW RESISTANCE SC (07:22)
[2025-02-17 08:28] LABS: Hematocrit 25.9 % (39.0-52.0); Hemoglobin 8.6 g/dL (13.0-18.0); Mean Corp Hgb Conc. 33.2 g/dL (33.0-37.0); Mean Corpuscular Volume 98.1 fL (80.0-94.0); Nucleated Red Blood Cells % 0 % (-); Platelet Count 230 10^3/uL (130-400); Red Cell Dist. Width 13.7 % (11.5-14.5)
[2025-02-17] MEDS: NSS (PRESERVATIVE FREE) 10 ML IV (08:31)
[2025-02-17] MEDS: VIBRAMYCIN 100 MG PO ×2 (08:32→20:48)
[2025-02-17] MEDS: PROTONIX IV 40 MG IV (08:32)
[2025-02-17] MEDS: PROSCAR 5 MG PO (08:32)
[2025-02-17] MEDS: SODIUM CHLORIDE 2 GRAM PO ×2 (08:32→20:48)
[2025-02-17] MEDS: DIOVAN 160 MG PO (08:32)
[2025-02-17] MEDS: NORVASC 5 MG PO (08:33)
[2025-02-17] MEDS: FLOMAX 0.4 MG PO (08:33)
[2025-02-17 09:03] LABS: Blood Urea Nitrogen 8 mg/dl (9-20); Calcium 8.6 mg/dl (8.4-10.2); Carbon Dioxide 24 mmol/L (22-30); Chloride 107 mmol/L (98-107); Estimated Creatinine Clearance 71 ml/min; Glucose 130 mg/dl (70-99); Potassium 4.7 mmol/L (3.5-5.1); Sodium 135 mmol/L (135-145); eGFR > 60.00
--- NOTE | 2025-02-17 09:04 | W.PN.GI.CBS2 ---
Addendum entered and electronically signed by Madina Wells MD 02/17/25 13:51:
I saw and examined the patient.
The HUNTER GUIDE's note was reviewed and I agree with the note.
Comment: He has not had any further bleeding, hemoglobin remains stable over the last 2 to 3 days, will advance diet to low residue diet. Agree with starting bowel regimen with MiraLAX and I also encouraged him to take Metamucil daily and MiraLAX
daily after DC. If no further bleeding okay for DC to home today
Original Note:
Today's Communication / Plan
-
-painless LGIB most likely from diverticulosis less likely neoplasm or ischemic colitis or hemorrhoids or angiectasias. doubt brisk upper GI bleed his BUN is normal and he is hemodynamically stable.
- Positive CTA 02/15 in descending colon and had emergent arteriogram with IR and no active bleeding was noted so embolization not performed
-last stool 02/16
will allow low residue/ ADA diet
hbg stable 8.6
will give dose Miralax today then start Metamucil 02/18 and colace tonight
-Given his age will hold on colonoscopy unless he has further active bleeding
discussed to patient to avoid constipation, return to ER if recurrent bleeding
medical team to see for possible discharge
Assessment / Plan
-
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
emergency room with acute onset of diarrhea and rectal bleeding. Took Aleve day prior. On admission hbg 9.7 with drop to 8.1
02/15- CTA
CTA evidence for active gastrointestinal bleeding into the lumen of the mid descending colon, which may be secondary to a diverticular bleed.
02/15emergent arteriogram with IR and no active bleeding was noted so embolization not performed
Laboratory Tests
02/15/25 02/15/25 02/16/25
04:04 19:13 03:43
Hgb 9.1 L 8.6 L 8.1 L
02/17/25
07:33
Hgb 8.6 L
Assessment and plan
-painless LGIB most likely from diverticulosis less likely neoplasm or ischemic colitis or hemorrhoids or angiectasias. doubt brisk upper GI bleed his BUN is normal and he is hemodynamically stable.
- Positive CTA 02/15 in descending colon and had emergent arteriogram with IR and no active bleeding was noted so embolization not performed
-last stool 02/16
will allow low residue/ ADA diet
hbg stable 8.6
will give dose Miralax today then start Metamucil 02/18 and colace tonight
-Given his age will hold on colonoscopy unless he has further active bleeding
discussed to patient to avoid constipation, return to ER if recurrent bleeding
medical team to see for possible discharge
Subjective
Subjective
Date of Service: February 17, 2025
02/16 dark stools, on clear diet feeling better asking about discharge
Objective
Data Reviewed
Laboratory Data:
Laboratory Results
02/17/25 07:33
02/17/25 07:33
Laboratory Results
PT 13.8 Sec (11.4-14.6) 02/14/25 10:17
INR 1.03 02/14/25 10:17
APTT 26.2 Sec (23.4-35.0) 02/14/25 10:17
Total Bilirubin 0.4 mg/dl (0.2-1.3) 02/14/25 10:17
AST 21 U/L (17-59) 02/14/25 10:17
ALT 12 U/L (0-50) 02/14/25 10:17
Alkaline Phosphatase 59 U/L (38-126) 02/14/25 10:17
Vital Signs and I&O:
Vital Signs
Temp Pulse Resp BP Pulse Ox
98 F 60 12 153/72 98
02/17/25 07:00 02/17/25 07:00 02/17/25 07:00 02/17/25 07:00 02/17/25 07:00
I&O
02/16/25 02/17/25 02/18/25
06:59 06:59 06:59
Intake Total 1310 / 1310 960 / 960
Output Total 1250 / 1250 100 / 100
Balance 60 / 60 860 / 860
Physical Exam
Physical Exam
HEENT: Anicteric and Moist mucous membranes
Cardiology: Normal Sinus Rhythm
Pulmonary: Clear
GI: Soft, Non Distended and Non Tender
Neuro: Non Focal
[2025-02-17] MEDS: MIRALAX 17 GRAMS PO (09:42)
--- NOTE | 2025-02-17 09:56 | W.PN.HOSP.TC ---
Addendum entered and electronically signed by José Luis Coronado MD 02/17/25 20:49:
Attending Addendum-
I saw and evaluated the patient. I reviewed the resident�s note and agree with findings and plan as documented in the resident�s note. Sub: seen with family present. has bright red bloody BM x 1 today. States he has not has a BM for days. Denies abd
pain NV fevers chills. Full 12 point ROS reviewed and negative except as documented Exam: Vitals reviewed in chart GEN-NAD heart RRR abd soft NT ND pos BS LE no edema
Plan:
# Lower GI bleed
-02/15-CTA abdomen/pelvis -acute diverticular bleed from mid descending colon.
-02/15-IR consulted for GERDA angiography-No bleed identified
-GI suspected to be diverticular bleed as patient reports to have known history of diverticulosis
-had bloody BM 02/17
-monitor ON
# NIDDM
-Hold metformin
-Sliding scale insulin
-Mjy0c-3.9
-CTM
# History of epidural abscess-
-Continue chronic suppressive abx-doxycycline
# Essential hypertension-
-Continue valsartan and Norvasc.
# BPH-
Continue alfuzosin and dutasteride
# DVT prophylaxis-
Sequential compression devices
# CODE STATUS-Full code
Dispo- DC in am to home
ACP
Patient consented to discuss, was with POA, time spent explanation of advance directives, changes in health status, patient�s health care wishes if the patient becomes unable to make health decisions, goals of care, code status, and prognosis 'hes
full code, do everything'- 16 minutes
Time spent coordinating care, review of plan of care with resident, personally reviewed previous records in EMR, med rec, labs, radiology, d/w nursing, family total time documented is exclusive of any additional time listed that was spent in advance
care planning discussion -�51 minutes
Original Note:
Today's Communication/Plan
-
1 bloody BM - watch ON per GI
Diabetic diet
Assessment / Plan
Assessment / Plan
Stgddoquvw-85-oa[age]-old male with PMHx significant for Spinal epidural abscess, essential hypertension, ybb-fhorolf-ocmocktcb type 2 diabetes mellitus, BPH with LUTS, E. coli UTI, herniated lumbar vertebrae with radiculopathy, osteoarthritis admitted
for workup of bright red bleeding per rectum with GI following. Thus far negative for active/identifiable bleed s/p IR areteriogram.
Plan-
#Lower GI bleed-
Admitted with a hemoglobin of 9.7, hemoglobin today-8.6 (from 8.1 02/16). After a huge bowel movement on 02/15/2025, his CTA abdomen/pelvis showed acute diverticular bleed from mid descending colon. IR consulted for possible GERDA embolization. No
bleed identified with IR. GI suspected to be diverticular bleed as patient reports to have known history of diverticulosis Patient stayed up-to-date on colonoscopies with no history of polyps or precancerous lesions. Less likely to be of malignant
etiology. Reports melanotic stool episode 02/17 10:30am. Good appetite, no symptoms.
- 1 bloody BM 02/17 am; discussed with GI, would like to watch him ON
- CTM
- Diabetic diet
- Miralax and Senna
#Type 2 diabetes mellitus, ukj-clwjxss-fhcwidvtu-
- Hold metformin
- Sliding scale insulin as needed
- Hemoglobin A1c 6.9
- Diabetic diet
#History of epidural abscess-
- Continue doxycycline.
#Essential hypertension-
- Continue valsartan and Norvasc.
#BPH-
- Continue alfuzosin and dutasteride
CODE STATUS: Full
DVT ppx: SCDs
Anticipated Discharge: Within 24 hours
Subjective/Interval History
-
Date of Service: February 17, 2025
- He had a bloody BM this am, but remains otherwise stable and feeling well. He would like to go home danyel.
- Advanced diet to diabetic diet.
Objective Data
-
Labs:
Laboratory Results
02/17/25
07:33
WBC 7.2
Hgb 8.6 L
Hct 25.9 L
Plt Count 230
Sodium 135
Potassium 4.7
Chloride 107
Carbon Dioxide 24
BUN 8 L
Creatinine 0.8
Glucose 130 H
Calcium 8.6
Vital Signs:
Vital Signs
Temp Pulse Resp BP Pulse Ox
98 F 60 12 153/72 98
02/17/25 07:00 02/17/25 07:00 02/17/25 07:00 02/17/25 07:00 02/17/25 07:00
I&O
02/16/25 02/17/25 02/18/25
06:59 06:59 06:59
Intake Total 1310 / 1310 960 / 960
Output Total 1250 / 1250 100 / 100
Balance 60 / 60 860 / 860
Review of Systems
-
History Source: Patient
All other systems: Reviewed and negative
Abdomen/GI: Reports Bloody Stools
Physical Exam
-
General: Well Developed, Well Nourished, No Apparent Distress and Other (appears well, sitting up eating breakfast)
HEENT: Normocephalic, Atraumatic, Moist Mucous Membranes and PERRLA
Respiratory: Clear to Auscultation and Wheezes
Cardiac: Regular Rhythm and S1/S2
GI: Soft, Nontender, Nondistended and Normal Bowel Sounds
Skin: Warm and Dry
Neuro: AO x 3
Psych: Calm and Intact Judgement/Insight
[2025-02-17 11:57] LABS: Glucose - Point of Care 237 mg/dl (70-99)
[2025-02-17] MEDS: NOVOLOG FLEXPEN-LOW RESISTANCE 2 UNITS SC (11:59)
[2025-02-17 16:32] LABS: Glucose - Point of Care 199 mg/dl (70-99)
--- NOTE | 2025-02-17 16:33 | CM ---
Spoke with patient in room . He said his Diandra will drive him [place].
IMM reviewed signed on chart.
Offered VN he declined need.
PLAN Home no needs
[2025-02-17] MEDS: NOVOLOG FLEXPEN-LOW RESISTANCE 1 UNITS SC (17:03)
[2025-02-17 22:00] LABS: Glucose - Point of Care 153 mg/dl (70-99)
[2025-02-17] MEDS: DESYREL 50 MG PO (22:17)
[2025-02-18 03:23] VITALS: BP 110/69
[2025-02-18 06:55] LABS: Glucose - Point of Care 157 mg/dl (70-99)
[2025-02-18 07:00] VITALS: BP 142/72
[2025-02-18 07:53] LABS: Hematocrit 25.6 % (39.0-52.0); Hemoglobin 8.7 g/dL (13.0-18.0); Mean Corp Hgb Conc. 34.0 g/dL (33.0-37.0); Mean Corpuscular Volume 97.3 fL (80.0-94.0); Nucleated Red Blood Cells % 0 % (-); Platelet Count 228 10^3/uL (130-400); Red Cell Dist. Width 13.8 % (11.5-14.5)
[2025-02-18 08:06] LABS: ALT (SGPT) 12 U/L (0-50); AST (SGOT) 18 U/L (17-59); Albumin 3.6 g/dl (3.5-5.0); Alkaline Phosphatase 58 U/L (38-126); Blood Urea Nitrogen 10 mg/dl (9-20); Calcium 8.8 mg/dl (8.4-10.2); Carbon Dioxide 27 mmol/L (22-30); Chloride 107 mmol/L (98-107); Estimated Creatinine Clearance 71 ml/min; Glucose 145 mg/dl (70-99); Potassium 4.4 mmol/L (3.5-5.1); Sodium 136 mmol/L (135-145); Total Protein 5.8 g/dl (6.3-8.2); eGFR > 60.00
[2025-02-18] MEDS: METAMUCIL, KONSYL 1 PACKET PO (08:14)
[2025-02-18] MEDS: NORVASC 5 MG PO (08:14)
[2025-02-18] MEDS: COLACE 100 MG PO (08:14)
[2025-02-18] MEDS: VIBRAMYCIN 100 MG PO (08:14)
[2025-02-18] MEDS: DIOVAN 160 MG PO (08:14)
[2025-02-18] MEDS: NSS (PRESERVATIVE FREE) 10 ML IV (08:15)
[2025-02-18] MEDS: FLOMAX 0.4 MG PO (08:15)
[2025-02-18] MEDS: PROSCAR 5 MG PO (08:15)
[2025-02-18] MEDS: PROTONIX IV 40 MG IV (08:15)
[2025-02-18] MEDS: FLUSH (NSS) 1 FLUSH IV (08:15)
[2025-02-18] MEDS: SODIUM CHLORIDE 2 GRAM PO (08:15)
[2025-02-18] MEDS: NOVOLOG FLEXPEN-LOW RESISTANCE 1 UNITS SC (08:16)
--- NOTE | 2025-02-18 09:29 | W.PN.GI.CBS2 ---
Today's Communication / Plan
-
Ok for DC
Continue Miralax and metamucil daily
Assessment / Plan
-
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
emergency room with acute onset of diarrhea and rectal bleeding. Took Aleve day prior. On admission hbg 9.7 with drop to 8.1
02/15- CTA
CTA evidence for active gastrointestinal bleeding into the lumen of the mid descending colon, which may be secondary to a diverticular bleed.
02/15emergent arteriogram with IR and no active bleeding was noted so embolization not performed
Laboratory Tests
02/15/25 02/15/25 02/16/25
04:04 19:13 03:43
Hgb 9.1 L 8.6 L 8.1 L
02/17/25
07:33
Hgb 8.6 L
Assessment and plan
-painless LGIB most likely from diverticulosis less likely neoplasm or ischemic colitis or hemorrhoids or angiectasias. doubt brisk upper GI bleed his BUN is normal and he is hemodynamically stable.
- Positive CTA 02/15 in descending colon and had emergent arteriogram with IR and no active bleeding was noted so embolization not performed
-tolerating LRD
-hbg stable 8.7
-Given his age will hold on colonoscopy unless he has further active bleeding
-Continue MiraLAX and metamucil
-hemoglobin stable with no further bleeding and bowel movement yesterday had dark blood likely old blood.
-Okay to GA home.
- Gi will s/o and will be available as needed
Subjective
Subjective
Date of Service: February 18, 2025
Patient tolerating diet no further bowel movement since yesterday morning which was dark blood, hemoglobin stable
Objective
Data Reviewed
Laboratory Data:
Laboratory Results
02/18/25 07:42
02/18/25 07:42
Laboratory Results
PT 13.8 Sec (11.4-14.6) 02/14/25 10:17
INR 1.03 02/14/25 10:17
APTT 26.2 Sec (23.4-35.0) 02/14/25 10:17
Total Bilirubin 0.5 mg/dl (0.2-1.3) 02/18/25 07:42
AST 18 U/L (17-59) 02/18/25 07:42
ALT 12 U/L (0-50) 02/18/25 07:42
Alkaline Phosphatase 58 U/L (38-126) 02/18/25 07:42
Vital Signs and I&O:
Vital Signs
Temp Pulse Resp BP Pulse Ox
98.1 F 82 18 142/72 98
02/18/25 07:00 02/18/25 08:14 02/18/25 07:00 02/18/25 08:14 02/18/25 08:10
I&O
02/17/25 02/18/25 02/19/25
06:59 06:59 06:59
Intake Total 960 / 960 1320 / 1320
Output Total 100 / 100 525 / 525
Balance 860 / 860 795 / 795
Physical Exam
Physical Exam
Cardiology: Normal Sinus Rhythm
Pulmonary: Clear
GI: Soft, Non Distended, Non Tender and Normal Bowel Sounds
--- NOTE | 2025-02-18 09:43 | W.PN.HOSP.TC ---
Addendum entered and electronically signed by José Luis Coronado MD 02/19/25 00:07:
Attending Addendum-
I saw and evaluated the patient. I reviewed the resident�s note and agree with findings and plan as documented in the resident�s note. Sub: no further blood in stools. Ready to go home. Denies abd pain NV fevers chills. Full 12 point ROS reviewed
and negative except as documented Exam: Vitals reviewed in chart GEN-NAD heart RRR abd soft NT ND pos BS LE no edema
Plan:
# Lower GI bleed
-resolved
-02/15-CTA abdomen/pelvis -acute diverticular bleed from mid descending colon.
-02/15-IR GERDA angiography-No acute bleed identified
-GI suspected to be diverticular bleed as patient reports to have known history of diverticulosis
-had bloody BM 02/17-none after
-stable for DC home
# NIDDM
-restart metformin
-Sliding scale insulin
-Sxl2f-2.9
-CTM
# History of epidural abscess-
-Continue chronic suppressive abx-doxycycline
# Essential hypertension-
-Continue valsartan and Norvasc.
# BPH-
Continue alfuzosin and dutasteride
# DVT prophylaxis-
Sequential compression devices
# CODE STATUS-Full code
Dispo- DC home
Time spent coordinating care, DC planning, review of DC plan of care with resident, transition of care, review of records, med rec/scripts sent electronically, consults, notes, d/w consultants, nursing, family, and CM� 31 mins >50% of this time was
devoted to counseling and coordination of care
Original Note:
Today's Communication/Plan
-
discharge home w/ CBC check and PCP f/u in a week
pt to take Miralax and Metamucil daily OP
Assessment / Plan
Assessment / Plan
[id number]old male with PMHx significant for Spinal epidural abscess, essential hypertension, mus-jlyyuqv-knjtdwwgj type 2 diabetes mellitus, BPH with LUTS, E. coli UTI, herniated lumbar vertebrae with radiculopathy, osteoarthritis admitted
for workup of bright red bleeding per rectum with GI following. Thus far negative for active/identifiable bleed s/p IR areteriogram.
Plan-
#Lower GI bleed-
Admitted with a hemoglobin of 9.7, hemoglobin today-8.6 (from 8.1 02/16). After a huge bowel movement on 02/15/2025, his CTA abdomen/pelvis showed acute diverticular bleed from mid descending colon. IR consulted for possible GERDA embolization. No
bleed identified with IR. GI suspected to be diverticular bleed as patient reports to have known history of diverticulosis Patient stayed up-to-date on colonoscopies with no history of polyps or precancerous lesions. Less likely to be of malignant
etiology. Reports melanotic stool episode 02/17 10:30am. Good appetite, no symptoms.
- 1 bloody BM 02/17 am; NAEON 02/18
-- medically stable for discharge; f/u PCP and CBC check in a week
- CTM
- Diabetic diet
- Miralax, Metamucil, and Senna -- continue OP
#Type 2 diabetes mellitus, yci-[id number]-alfopxcfl-
- Hold metformin
- Sliding scale insulin as needed
- Hemoglobin A1c 6.9
- Diabetic diet
#History of epidural abscess-
- Continue doxycycline
#Essential hypertension-
- Continue valsartan and Norvasc
#BPH-
- Continue alfuzosin and dutasteride
CODE STATUS: Full
DVT ppx: SCDs
Anticipated Discharge: Today
Subjective/Interval History
-
Date of Service: February 18, 2025
- No BM since yesterday; continues to feel well and without symptoms of anemia. Eager to go home.
- States he already has Miralax and Metamucil at home.
Objective Data
-
Labs:
Laboratory Results
02/18/25
07:42
WBC 7.7
Hgb 8.7 L
Hct 25.6 L
Plt Count 228
Sodium 136
Potassium 4.4
Chloride 107
Carbon Dioxide 27
BUN 10
Creatinine 0.8
Glucose 145 H
Calcium 8.8
Total Bilirubin 0.5
AST 18
ALT 12
Alkaline Phosphatase 58
Vital Signs:
Vital Signs
Temp Pulse Resp BP Pulse Ox
98.1 F 82 18 142/72 98
02/18/25 07:00 02/18/25 08:14 02/18/25 07:00 02/18/25 08:14 02/18/25 08:10
I&O
02/17/25 02/18/25 02/19/25
06:59 06:59 06:59
Intake Total 960 / 960 1320 / 1320
Output Total 100 / 100 525 / 525
Balance 860 / 860 795 / 795
Review of Systems
-
All other systems: Reviewed and negative
Physical Exam
-
General: Well Developed, Well Nourished, No Apparent Distress and Comfortable
HEENT: Normocephalic, Atraumatic and Moist Mucous Membranes
Respiratory: Clear to Auscultation
Cardiac: Regular Rhythm and S1/S2
GI: Soft, Nontender and Nondistended
Skin: Warm and Dry
Neuro: AO x 3
Psych: Calm
[2025-02-18 11:00] VITALS: BP 117/64
[2025-02-18 11:06] LABS: Glucose - Point of Care 258 mg/dl (70-99)
--- NOTE | 2025-02-18 11:33 | CM ---
MD entered order for discharge.
Pt said his Diandra will drive him [place].
Offered VN he declined need.
PLAN Home no needs
[2025-02-18] MEDS: NOVOLOG FLEXPEN-LOW RESISTANCE 3 UNITS SC (11:52)
--- NOTE | 2025-02-18 13:01 | W.DCSUMMARY ---
Addendum entered and electronically signed by José Luis Coronado MD 02/19/25 00:08:
Read, reviewed, and agree. See same day progress note for additional details.
Mynor Coronado MD
Original Note:
Documented by User: Nabeel Hatfield MD, Resident 02/18/25 13:19
Discharge Summary
Discharge Data
Date of Admission: 02/14/25
Date of Discharge: 02/18/25
-
Pending Results: No
Hospital Course
Discharging Physician : Nabeel Hatfield
Disposition : Home
Principal Discharge diagnosis : Lower GI Bleed, likely diverticular iso known diverticulosis
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
Hospital Course : Mr. Yeung is an 89-year-old male with diverticulosis and internal hemorrhoids seen on prior colonoscopies and other past medical history as listed above who presented to the ED for evaluation and management of bloody stools. He
had 2-3 episodes at home on 02/13 and one in the ER on 02/14. Hemoglobin in ED 9.7, no blood in rectum noted. GI was consulted and recommended CLD with slow advancement and interventions only in the case of active bleeding concern. Throughout hospital
admission, he was asymptomatic without nausea, pain, hematemesis, dizziness, or SOB. On 02/15, he had another bloody BM and Hgb 8.1, but remained asymptomatic. A stat CT angiogram showed active bleeding in the descending colon. IR was consulted and
took Mr. Yeung for an emergent mesenteric angiogram with selective GERDA arteriogram but did not find an active bleed so embolization was not performed. He remained on CLD per GI for the day to follow without symptoms and rising Hgb. Throughout
02/16-discharge, he had 2 bloody BMs, again without symtoms and with Hgb stable at 8.7. The bleed was deemed to be likely divertular iso known diverticulosis and GI recommended Metamucil and Miralax daily. He was discharged with GI referral,
instructions for worsening signs/symptoms of anemia/GI bleed, and CBC w/ diff in a week with PCP follow-up.
Important imaging findings :
02/15:
CTA
CTA evidence for active gastrointestinal bleeding into the lumen of the mid descending colon, which may be secondary to a diverticular bleed.
Procedure findings :
02/15:
Emergent arteriogram with IR and no active bleeding was noted so embolization not performed.
Discharge Plan
-
Patient Disposition: Home (Routine Discharge)
Discharge Diagnosis/Procedures: Lower GI Bleed, likely diverticular
Condition: Good
Diet: Diabetic, Carb Controlled
Activity: No restrictions
Driving Restrictions: As prior to admission
Bathing Restrictions: None
Blood Work: CBC w/ diff in a week for hemoglobin check; follow-up results with your PCP
Referrals:
Madina Wells MD [Active, Gastroenterology]
Referral Note: call for any recurrent bleeding. If large volume go to ER. Call to review for constipation regiment if needed.
Eamon Lan MD [Family Provider, Internal Medicine] - in less than 1 week
Referral Note: Follow-up regarding this hospitalization and hemoglobin
Additional Discharge Medication Instructions: - return to ER for any recurrent bleeding, call PCP or GI if any further adjustment needed for constipation
- take Metamucil daily and MiraLAX daily
- avoid NSAIDs (Aleve, Advil, Mortin etc) for pain control; use Tylenol instead
Prescriptions:
Continued
metformin 500 mg tablet
750 mg PO BID
doxycycline hyclate 100 mg capsule
100 mg PO BID
therapeutic multivitamin Tablet
1 tab PO DAILY
dutasteride 0.5 mg capsule
0.5 mg PO DAILY
alfuzosin 10 mg tablet extended release 24 hr
10 mg PO DAILY
amlodipine-valsartan 5-160 mg tablet
1 tab PO DAILY
cholecalciferol (vitamin D3) [Vitamin D3] 25 mcg (1,000 unit) Tablet
25 mcg PO DAILY
Prevagen
1 cap PO DAILY
trazodone 50 mg Tablet
50 mg PO HS
sodium chloride 1 gram Tablet
2,000 mg PO BID
Discontinued
naproxen sodium [Aleve] 220 mg Tablet
220 mg PO DAILYPRN PRN (Reason: mild pain)
Discharge Orders:
Discharge Patient (As Directed); Ordered 02/18/25
Ordered By: Nabeel Hatfield
Discharge Date and Time
Discharge Date/Time: 02/18/25 12:55
Print Language: HUNGARIAN

Documented by User: José Luis Coronado MD 02/19/25 00:06
Discharge Summary
Discharge Data
Date of Admission: 02/14/25
Date of Discharge: 02/19/25
Discharge Plan
-
Patient Disposition: Home (Routine Discharge)
Discharge Diagnosis/Procedures: Lower GI Bleed, likely diverticular
Condition: Good
Diet: Diabetic, Carb Controlled
Activity: No restrictions
Driving Restrictions: As prior to admission
Bathing Restrictions: None
Blood Work: CBC w/ diff in a week for hemoglobin check; follow-up results with your PCP
Referrals:
Madina Wells MD [Active, Gastroenterology]
Referral Note: call for any recurrent bleeding. If large volume go to ER. Call to review for constipation regiment if needed.
Eamon Lan MD [Family Provider, Internal Medicine] - in less than 1 week
Referral Note: Follow-up regarding this hospitalization and hemoglobin
Additional Discharge Medication Instructions: - return to ER for any recurrent bleeding, call PCP or GI if any further adjustment needed for constipation
- take Metamucil daily and MiraLAX daily
- avoid NSAIDs (Aleve, Advil, Mortin etc) for pain control; use Tylenol instead
Prescriptions:
Continued
metformin 500 mg tablet
750 mg PO BID
doxycycline hyclate 100 mg capsule
100 mg PO BID
therapeutic multivitamin Tablet
1 tab PO DAILY
dutasteride 0.5 mg capsule
0.5 mg PO DAILY
alfuzosin 10 mg tablet extended release 24 hr
10 mg PO DAILY
amlodipine-valsartan 5-160 mg tablet
1 tab PO DAILY
cholecalciferol (vitamin D3) [Vitamin D3] 25 mcg (1,000 unit) Tablet
25 mcg PO DAILY
Prevagen
1 cap PO DAILY
trazodone 50 mg Tablet
50 mg PO HS
sodium chloride 1 gram Tablet
2,000 mg PO BID
Discontinued
naproxen sodium [Aleve] 220 mg Tablet
220 mg PO DAILYPRN PRN (Reason: mild pain)
Discharge Orders:
Discharge Patient (As Directed); Ordered 02/18/25
Ordered By: Nabeel Hatfield
Discharge Date and Time
Discharge Date/Time: 02/18/25 12:55
Print Language: HUNGARIAN
== END 2025-02-18 12:55 | disposition home or self-care (01) | DRG 377 ==
LOC: 4 EAST ACU 15:22
PROVIDERS: Emergency Medicine; Radiology Diagnostic Radiology; Registered Nurse; Student in an Organized Health Care Education/Training Program; ADMITTING PHYSICIAN Internal Medicine; ATTENDING PHYSICIAN Family Medicine; CONSULT PHYSICIAN Internal Medicine Gastroenterology; EMERGENCY PHYSICIAN Emergency Medicine; FAMILY PHYSICIAN Internal Medicine
PROC: B415YZZ Fluoroscopy of Inferior Mesenteric Artery using Other Contrast (ICD-10-PCS; 2025-02-15)
DX: K57.31 Diverticulosis of large intestine without perforation or abscess with bleeding (principal); G06.2 Extradural and subdural abscess, unspecified; E11.9 Type 2 diabetes mellitus without complications; N40.0 Benign prostatic hyperplasia without lower urinary tract symptoms; I10 Essential (primary) hypertension; K64.8 Other hemorrhoids; Z87.891 Personal history of nicotine dependence; Z79.899 Other long term (current) drug therapy; Z79.84 Long term (current) use of oral hypoglycemic drugs
CPT/HCPCS: 36245; 74174; 75726; 76937; 80048; 80053; 82962; 83036; 85014; 85018; 85025; 85027; 85610; 85730; 86850; 86900; 86901; 97161; 97165; 99284; C1769; C1887; Q9967